=== PATIENT | female | born 1950 | race Caucasian/White ===

== ENCOUNTER → 2016-02-27 | Outpatient (CLI) | payer OTHER ==
[~2016-02-27] MED LIST: AMLO-114 PO; ASPI1CHW12; BIOTCAP2 PO; BYS/5 PO; HYDR1TAB2 PO; KETO10TA PO; LEVO125T4 PO; MULT-506 PO; OXYC-57 PO; POTA10CA28 PO; SIMV20TA2 PO; VENL150T33 PO; VENL75CA73 PO; ZOLP10TA6 PO; ZOLP5TAB PO
[2016-02-27 10:55] LABS: BASO % 0.4 %; BASO ABS # 0.03 K/uL (0-0.2); COMPLETE YES; EOS % 2.5 %; HEMATOCRIT 39.7 % (37-47); LYMPH ABS # 2.26 K/uL (1.2-3.4); MEAN CELL VOLUME 92.3 fL (80-100); MEAN CORPUSCULAR HGB CONC 32.5 g/dl (32-36); MEAN PLATELET VOLUME 11.6 fL (7.4-10.4); MONO % 6.9 %; NEUT % 59.2 %; PLATELET COUNT 192 K/uL (130-400); WHITE BLOOD COUNT 7.29 K/uL (4.8-10.8)
[2016-02-27 11:33] LABS: BLOOD UREA NITROGEN 21 mg/dl (7-18); BUN/CREATININE RATIO 28.9 (10-20); CALCIUM 8.9 mg/dl (8.5-10.1); CARBON DIOXIDE 27 mmol/L (21-32); CHLORIDE 106 mmol/L (98-107); CREATININE 0.72 mg/dl (0.60-1.20); GLUCOSE 102 mg/dl (70-99); POTASSIUM 4.2 mmol/L (3.5-5.1); SODIUM 141 mmol/L (136-145)
== END | disposition home or self-care (01) ==
LOC: C.CPL 10:05
PROVIDERS: ATTEND Orthopaedic Surgery
DX: Z01.812 Encounter for preprocedural laboratory examination (principal); Z01.810 Encounter for preprocedural cardiovascular examination; M25.511 Pain in right shoulder

== ENCOUNTER → 2016-03-08 | Day surgery (SDC) | payer OTHER ==
[2016-03-06 09:25] VITALS: Ht 158.8 cm; Wt 85.5 kg
[~2016-03-08] VITALS: Ht 158.8 cm; Wt 85.5 kg
[~2016-03-08] MED LIST changes: -AMLO-114 PO; +ATROPINE SULFATE 0.1 MG/ML 5ML SYR IV PRN; +BUPIVACAINE/EPINEPHRINE 0.25% 1:200,000 30 ML VIAL ONE; +CEFAZOLIN 2000 MG/60 ML D5W IV SCH; +DEXAMETHASONE SOD INJ 4 MG/ML VIAL IV PRN; +DEXAMETHASONE SOD INJ 4 MG/ML VIAL ONE; +EpHEDrine SULFATE 50MG/5ML SYR ONE; +EpHEDrine SULFATE INJ 50 MG/ML AMP IV PRN; +EpINEphrine INJ 1MG/ML AMP 1 MG/ML AMP ONE; +FENTANYL CITRATE INJ 50 MCG/1 ML 2 ML VIAL IV PRN; +FENTANYL CITRATE INJ 50 MCG/1 ML 2 ML VIAL ONE; -HYDR1TAB2 PO; +KETOROLAC TROMETHAMINE 30 MG/ML VIAL IV. PRN; +LABETALOL HCL IV 5 MG/ML 20ML IV PRN; +LACTATED RINGER'S 1000ML 1,000 ML IV SCH; +LIDOCAINE HCL 1% MPF 2 ML VIAL ONE; +LIDOCAINE HCL 2% 2 ML VIAL (20MG/ML) ONE; +METOCLOPRAMIDE HCL INJ 5 MG/ML 2 ML VIAL IV PRN; +MIDAZOLAM HCL 1 MG/ML 2ML VIAL ONE; +MoRPHine SULFATE 10 MG/ML CARP/VIAL IV PRN; +ONDANSETRON INJ 2 MG/ML 2 ML VIAL IV PRN; +ONDANSETRON INJ 2 MG/ML 2 ML VIAL ONE; +OXYCODONE/ACETAMINOPHEN 5-325 TAB PO PRN; +PHENYLEPHRINE 100MCG/ML 5ML SYR IV PRN; +PROPOFOL IV EMULSION 10 MG/ML 20 ML VIAL IV ONE; +ROPIVACAINE 0.5% 5 MG/ML 30 ML VIAL ONE; +SODIUM CHLORIDE 0.9% 1000ML 1,000 ML IV SCH; -ZOLP5TAB PO
--- NOTE | 2016-03-08 07:35 | History & Physical Bridge - [place] ---
H&P Re-Evaluation Bridge Note: I have examined the patient, reviewed the History & Physical and in the interval since the performance of the History & Physical I have noted the following changes of clinical significance: No changes noted
--- NOTE | 2016-03-08 11:04 | Discharge Instructions-SurgCtr ---
Discharge Instructions Visit Reason for Visit: Right Shoulder Rotator Cuff Syndrome, Pain Discharge Discharge Diagnosis / Problem: SAME ABOVE Discharge Goals Goal(s): Decrease discomfort, Improve disease control Activity Recommendations Activity Limitations: resume your previous activity Lifting Limitations: until after follow-up appointment Exercise/Sports Limitations: until after follow-up appointment Driving or Machine Use: resume 1 day after discharge Anesthesia . Post Anesthesia Instructions: If you have had General Anesthesia or IV Sedation: * Do not drive today. * Resume driving when surgeon permits. * Do not make important decisions or sign legal documents today. * Call surgeon for: 1. Temperature elevations greater than 101 degrees F. 2. Uncontrollable pain. 3. Excessive bleeding. 4. Persistent nausea and vomiting. 5. Medication intolerance (nausea, vomiting or rash). * For nausea and vomiting use only clear liquids such as: tea, soda, bouillon until nausea subsides, then gradually increase diet as tolerated. * If you have any concerns or questions, call your surgeon's office. If physician is unavailable and it is an emergency, call 911 or go to the nearest emergency room. . Instructions / Follow-Up Instructions / Follow-Up MEDICATIONS: * Resume previous medications unless instructed otherwise by your surgeon. * Always take pain medication on a full stomach or with food to avoid upset stomach. * Do not drink alcohol or drive while taking narcotics. * Ibuprofen or Tylenol may be taken if narcotic not needed. SPECIAL CARE INSTRUCTIONS: __ None _X_ Keep extremity elevated and iced x 48 hours; apply ice 20-30 minutes 8-10 times/day. May remove at night. _X_ Sling (WEAR NEEDED FOR COMFORT) __24 hrs/day __ Remove at night __ Shoulder Immobilizer __ 24 hrs/day __ Remove at night _X_ Dressing __ Maintain until seen in office, may shower with plastic over site _X_ Remove dressings in 24-48 hours and then may shower _X_ Cover incisions with band-aids after showering __ Do not remove steri-strips Call physician if chills or temperature rises above 102 degrees or pain unrelieved by prescribed pain medications at . . Diet Recommendations Home Diet: no limitations Fluid Restriction: None Procedures Procedures Performed: Right Shoulder Arthroscopy, Subacromial Decompression, Distal Clavicle Excsion Biceps Tenotomy Pending Studies Studies pending at discharge: no Medical Emergencies . Who to Call and When: Medical Emergencies: If at any time you feel your situation is an emergency, please call 911 immediately. . Non-Emergent Contact Non-Emergency issues call your: Primary Care Provider Call Non-Emergent contact if: you have a fever, temperature is above 101.5 . . "Provider Documentation" section prepared by Porter Silver.
--- NOTE | 2016-03-08 11:08 | [facility] Post Operative Brief Note ---
Immediate Operative Summary Operative Date Mar 08, 2016. Pre-Operative Diagnosis Right Shoulder Rotator Cuff Syndrome, Pain Post-Operative Diagnosis Same Procedure(s) Performed Right Shoulder Arthroscopy, Subacromial Decompression, Distal Clavicle Excsion Biceps Tenotomy Surgeon Dr. Vanna Madrigal Contract Administrator Surgeon(s) Orlando Silver PA-C Findings as above Specimens None Complication(s) None Disposition Recovery Room / PACU
--- NOTE | 2016-03-08 11:10 | OPERATIVE REPORT ---
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 POSTOPERATIVE DIAGNOSIS: Severe external impingement, acromioclavicular joint arthritis, and moderate to severe arthritis of the glenohumeral joint. PROCEDURE: Right shoulder diagnostic arthroscopy with extensive debridement including removal several small cartilaginous loose bodies, and chondroplasty of the glenohumeral joint with acromioplasty, biceps tenotomy and distal clavicle resection. SURGEON: Dr. Mega Madrigal. FISHERIES ENFORCEMENT OFFICER: Brandon Silver PA-C, whose assistance was necessary for positioning the arm and helping with instrumentation. ANESTHESIA: General with a right interscalene nerve block. COMPLICATIONS: None. CONDITION: Stable to PACU. INDICATIONS: Barbie is a pleasant 65-year-old female who presented to my office with chronic right shoulder pain. X-rays, MRI and clinical examination were diagnostic mostly for severe external impingement. I did not appreciate a lot of arthritis on the initial MRI. After failing extensive conservative treatment, she elected to undergo arthroscopy. On 03/08/2016, she arrived at [facility] for the above procedure. She was seen in the preoperative holding area and the operative extremity was identified and signed. She was given a preoperative antibiotic and a right interscalene nerve block. She was taken back to the operating room, laid on the table in a supine position and put under general anesthesia. She was then put into the beachchair position. The right shoulder was prepped and draped in a sterile fashion. A time-out was done and the patient and operative extremity was properly identified. On preoperative physical examination, she was a little bit tight, but no signs of adhesive capsulitis. A scope was placed in the posterior portal. Diagnostic arthroscopy showed significant grade 3 and grade 4 chondral changes throughout the humeral head and the glenoid. There was a small inferior humeral osteophyte. There were multiple small cartilaginous loose bodies. An anterior portal was made. A shaver was used to do an extensive debridement of the intraarticular space. A chondroplasty was done throughout the humeral head and the glenoid. The frayed degenerative labrum was cleaned up and small loose bodies were removed. There was a large degenerative labral SLAP tear, so the biceps tendon was arthroscopically tenotomized. The supraspinatus, infraspinatus, teres minor and subscapularis were all checked and intact. The scope was then put into the subacromial space. A lateral portal was made. A shaver was used to do a complete subacromial and subdeltoid bursectomy. An ablator was used to tease the coracoacromial ligament off the undersurface of the acromion and a 5-0 jose was used to complete an acromioplasty of a Bigliani type 3 acromion. A shaver was used to remove any excess debris and the bursal side of the rotator cuff was examined extensively without evidence of tear. There was some arthritis of the AC joint, so through an anterior portal a 5-0 jose was used to resect the distal 5 mm of the clavicle. Complete resection was checked under direct visualization. A shaver was used to remove any excess debris. Final diagnostic arthroscopy showed no additional pathology. Arthroscopic instruments were removed from the shoulder. Portal sites were closed with 3-0 nylon. She was then placed in a soft dressing and regular arm sling. She was then extubated, transferred to a litter and taken to the postanesthesia care unit in stable condition. She tolerated the procedure well. I attest to the content of the Intraoperative Record and any orders documented therein. Any exceptio ns are noted below.
[2016-03-08 11:55] VITALS: TEMP 36.6
--- NOTE | 2016-03-08 12:16 | Anesthesia Progress Nt - [facility] ---
Anesthesia Post Op Note Date & Time Mar 08, 2016 at 12:15 Vital Signs Pain Intensity: 0 Vital Signs Past 12 Hours Date Time Temp Pulse Resp B/P Pulse Ox O2 Delivery O2 Flow Rate FiO2 03/08/16 11:43 128/70 03/08/16 11:40 83 18 03/08/16 11:40 83 18 96 03/08/16 11:39 84 18 96 03/08/16 11:39 85 18 03/08/16 11:38 130/65 03/08/16 11:37 36.6 85 16 126/61 97 Room Air 03/08/16 11:34 85 25 126/61 98 03/08/16 11:34 84 25 03/08/16 11:29 84 19 129/60 100 03/08/16 11:29 84 19 03/08/16 11:24 80 19 03/08/16 11:24 84 19 100 03/08/16 11:23 128/71 03/08/16 11:22 83 19 03/08/16 11:22 86 19 100 03/08/16 11:19 136/60 03/08/16 11:17 83 18 03/08/16 11:17 84 18 100 03/08/16 11:16 84 22 100 03/08/16 11:16 83 22 03/08/16 11:13 136/72 03/08/16 11:11 81 23 03/08/16 11:11 88 23 100 03/08/16 11:08 139/65 03/08/16 11:06 84 18 100 03/08/16 11:06 84 18 03/08/16 11:06 36.4 88 12 147/74 98 Diffusion Mask 6 03/08/16 11:04 147/74 03/08/16 10:11 0 03/08/16 10:11 0 03/08/16 10:06 71 15 03/08/16 10:06 71 15 100 03/08/16 10:05 73 15 03/08/16 10:05 72 15 100 03/08/16 10:03 119/66 03/08/16 10:00 78 24 03/08/16 10:00 78 24 100 03/08/16 09:59 77 17 03/08/16 09:59 77 17 125/70 100 03/08/16 09:54 77 16 99 03/08/16 09:54 78 16 03/08/16 09:53 123/62 03/08/16 09:49 74 17 03/08/16 09:49 74 17 100 03/08/16 09:48 122/56 03/08/16 09:44 72 16 03/08/16 09:44 72 16 100 03/08/16 09:43 116/60 03/08/16 09:39 72 13 03/08/16 09:39 72 13 100 03/08/16 09:38 113/63 03/08/16 09:36 70 16 03/08/16 09:36 70 16 100 03/08/16 09:33 121/59 03/08/16 09:31 67 16 03/08/16 09:31 67 16 100 03/08/16 09:30 68 20 100 03/08/16 09:30 68 20 03/08/16 09:29 122/67 03/08/16 09:25 72 18 100 03/08/16 09:25 72 18 03/08/16 09:23 125/67 03/08/16 09:20 73 17 100 03/08/16 09:20 74 17 03/08/16 09:18 152/79 03/08/16 09:15 69 03/08/16 07:49 36.8 68 16 149/66 96 Room Air Notes Mental Status: alert / awake / arousable, participated in evaluation Pt Amnestic to Procedure: Yes Nausea / Vomiting: adequately controlled Pain: adequately controlled Airway Patency, RR, SpO2: stable & adequate BP & HR: stable & adequate Hydration State: stable & adequate Anesthetic Complications: no major complications apparent
[2016-03-08 12:30] VITALS: BP 136/80; PULSE 80; O2SAT 96
== END | disposition home or self-care (01) ==
LOC: X.SURG 07:14
PROVIDERS: ATTEND Orthopaedic Surgery
DX: M75.41 Impingement syndrome of right shoulder (principal); M19.011 Primary osteoarthritis, right shoulder; E78.00 Pure hypercholesterolemia, unspecified

== ENCOUNTER 2017-02-01 09:39 | Observation (INO) | payer OTHER ==
[~2017-02-01] VITALS: Ht 157.5 cm; Wt 93.4 kg
[~2017-02-01 09:39] MED LIST changes: -ATROPINE SULFATE 0.1 MG/ML 5ML SYR IV PRN; -BUPIVACAINE/EPINEPHRINE 0.25% 1:200,000 30 ML VIAL ONE; -CEFAZOLIN 2000 MG/60 ML D5W IV SCH; -DEXAMETHASONE SOD INJ 4 MG/ML VIAL IV PRN; -DEXAMETHASONE SOD INJ 4 MG/ML VIAL ONE; -EpHEDrine SULFATE 50MG/5ML SYR ONE; -EpHEDrine SULFATE INJ 50 MG/ML AMP IV PRN; -EpINEphrine INJ 1MG/ML AMP 1 MG/ML AMP ONE; -FENTANYL CITRATE INJ 50 MCG/1 ML 2 ML VIAL IV PRN; -FENTANYL CITRATE INJ 50 MCG/1 ML 2 ML VIAL ONE; -KETO10TA PO; -KETOROLAC TROMETHAMINE 30 MG/ML VIAL IV. PRN; -LABETALOL HCL IV 5 MG/ML 20ML IV PRN; -LACTATED RINGER'S 1000ML 1,000 ML IV SCH; -LEVO125T4 PO; +LEVO125T5 PO; -LIDOCAINE HCL 1% MPF 2 ML VIAL ONE; -LIDOCAINE HCL 2% 2 ML VIAL (20MG/ML) ONE; -METOCLOPRAMIDE HCL INJ 5 MG/ML 2 ML VIAL IV PRN; -MIDAZOLAM HCL 1 MG/ML 2ML VIAL ONE; -MoRPHine SULFATE 10 MG/ML CARP/VIAL IV PRN; -ONDANSETRON INJ 2 MG/ML 2 ML VIAL IV PRN; -ONDANSETRON INJ 2 MG/ML 2 ML VIAL ONE; -OXYC-57 PO; -OXYCODONE/ACETAMINOPHEN 5-325 TAB PO PRN; -PHENYLEPHRINE 100MCG/ML 5ML SYR IV PRN; -PROPOFOL IV EMULSION 10 MG/ML 20 ML VIAL IV ONE; -ROPIVACAINE 0.5% 5 MG/ML 30 ML VIAL ONE; -SODIUM CHLORIDE 0.9% 1000ML 1,000 ML IV SCH
[2017-02-01] MEDS ORDERED: ASPIRIN 324 MG CHEW PO STA (09:54)
[2017-02-01 10:16] LABS: POINT OF CARE TROPONIN I < 0.030 ng/ml (0-0.045)
[2017-02-01 10:17] LABS: PROTHROMBIN TIME (PATIENT) 10.1 SECONDS (9.0-12.0)
[2017-02-01 10:25] LABS: BLOOD UREA NITROGEN 15 mg/dl (7-18); BUN/CREATININE RATIO 20.1 (10-20); CALCIUM 8.5 mg/dl (8.5-10.1); CARBON DIOXIDE 27 mmol/L (21-32); CHLORIDE 108 mmol/L (98-107); CREATININE 0.72 mg/dl (0.60-1.20); GLUCOSE 97 mg/dl (70-99); SODIUM 138 mmol/L (136-145)
[2017-02-01 10:26] LABS: BASO % 0.6 %; BASO ABS # 0.04 K/uL (0-0.2); COMPLETE YES; EOS % 2.6 %; HEMATOCRIT 41.2 % (37-47); IG% 0.3 %; LYMPH % 34.5 %; LYMPH ABS # 2.43 K/uL (1.2-3.4); MEAN CELL VOLUME 92.4 fL (80-100); MEAN CORPUSCULAR HEMOGLOBIN 30.3 pg (25-34); MEAN CORPUSCULAR HGB CONC 32.8 g/dl (32-36); MEAN PLATELET VOLUME 10.9 fL (7.4-10.4); MONO % 7.9 %; NEUT % 54.1 %; PLATELET COUNT 223 K/uL (130-400); RED BLOOD COUNT 4.46 M/uL (4.2-5.4); WHITE BLOOD COUNT 7.05 K/uL (4.8-10.8)
--- NOTE | 2017-02-01 10:35 | DIAGNOSTIC IMAGING REPORT ---
CHEST ONE VIEW PORTABLE CLINICAL HISTORY: cp dyspnea COMPARISON STUDY: 06/24/2012 FINDINGS: The bones soft tissues and hemidiaphragms are normal. The cardiomediastinal silhouette is normal. The lungs are clear. The pulmonary vasculature is normal. IMPRESSION: Negative chest. The above report was generated using voice recognition software. It may contain grammatical, syntax or spelling errors. Electronically signed by: Lai Hooper M.D. 02/01/2017 10:33 AM Dictated Date/Time: 02/01/2017 10:32 AM
[2017-02-01] MEDS ORDERED: OPTIRAY 320 IV PRN (10:45)
--- NOTE | 2017-02-01 10:58 | DIAGNOSTIC IMAGING REPORT ---
(CHEST FOR PE) ANGIO WITH CT DOSE: 317.43 mGy.cm HISTORY: Chest pain dyspnea TECHNIQUE: Multiaxial CT images of the chest were performed following the intravenous administration of contrast to evaluate the pulmonary arteries. Maximal intensity projection images were also obtained. A dose lowering technique was utilized adhering to the principles of ALARA. COMPARISON STUDY: None. FINDINGS: There is a normal caliber thoracic aorta with no evidence for dissection. There is no evidence for pulmonary embolus. No pleural effusions. No pneumothorax. The liver and spleen are unremarkable. No mediastinal or hilar lymphadenopathy. The central airways are patent. The lungs are clear. IMPRESSION: No evidence for pulmonary embolus. The lungs are clear. The above report was generated using voice recognition software. It may contain grammatical, syntax or spelling errors. Electronically signed by: Lai Hooper M.D. 02/01/2017 10:57 AM Dictated Date/Time: 02/01/2017 10:53 AM
--- NOTE | 2017-02-01 11:58 | DIAGNOSTIC IMAGING REPORT ---
ULTRASOUND L VENOUS DOPP LOWER EXT UNILAT CLINICAL HISTORY: Left leg pain COMPARISON STUDY: No previous studies for comparison. FINDINGS: Real-time and color flow Doppler imaging were performed. Flow was seen within the femoral, popliteal and calf veins with no intraluminal thrombus demonstrated. The saphenous vein is patent. IMPRESSION: No evidence of left lower extremity DVT. Electronically signed by: Vasyl Jansen M.D. 02/01/2017 11:56 AM Dictated Date/Time: 02/01/2017 11:56 AM
[2017-02-01] MEDS ORDERED: MAGNESIUM HYDROXIDE SUSP 30 ML UDC PO PRN (12:00)
[2017-02-01] MEDS ORDERED: ALUMINUM/MAGNESIUM/SIMETH (MAALOX MAX) 30 ML UDC PO PRN (12:00)
[2017-02-01] MEDS ORDERED: ACETAMINOPHEN 325 MG TAB PO PRN (12:00)
[2017-02-01] MEDS ORDERED: ZOLPIDEM TARTRATE 5 MG TAB PO PRN (12:00)
[2017-02-01] MEDS ORDERED: POLYETHYLENE (MIRALAX) 17 GM PACK PO PRN (12:00)
[2017-02-01] MEDS ORDERED: ONDANSETRON INJ 2 MG/ML 2 ML VIAL IV PRN (12:00)
[2017-02-01 12:25] VITALS: BP 130/75; PULSE 67; TEMP 36.4; O2SAT 99; Ht 157.5 cm; Wt 93.4 kg
--- NOTE | 2017-02-01 12:56 | Progress Note ---
Progress Note Date of Service Feb 01, 2017. Progress Note ATTENDING NOTE : pt seen and examined, in agreement with H&P by Candace Elmore PA-C lab and images reviewed 66 YO F with medical hx of HTN , hyperlipidemia , depression is scheduled to have left knee arthroplasty by Dr Yu on 03/20/17 pt was at [facility] for pre op eval , reports of SOB with exertion , stress episodes of left jaw pain and left arm numbness pt was sent to ER for eval no symptom to chest heaviness or chest pain at present mentions of having chest heaviness with going up on stairs and anxiety stress , gets SOB gained wit recently -attributing her symptoms to that as well no dizzy spell , diaphoresis , nausea , jaw discomfort or left arm pain with chest discomfort gets left jaw pain /discomfort like [place] -but does not happen same time with chest heaviness left arm numbness left arm numbness on and off , has left sided rotator cuff injury does not occur with chest pain P/E: GEN elderly female , well appearing , no sign of distress HEENT sclera non icteric , PERRLA /EOMI LUNGS : clear to auscultate ,no wheeze or rales HT : regular S1/S2 ABDOMEN: soft, non tender EXT no lower ext edema, tenderness and decrease ROM on left lower ext NEURO: AAO x3. no focal deficit A/P Chest pain : atypical for angina , intermittent for 3 weeks , no other associated symptom left jaw pain and left arm numbness appears to be separate issues possible TMJ on left /cervical radiculopathy has decrease endurance for left knee DJD cardiac marker X1 set negative EKG NSR Cxray no effusion or infiltration CTA of chest ordered for elevated D Dimer -negative for PE or any other lung pathology given pt's age and cardiac risk factors ;HTN /hyperlipidemia ACS need to be ruled out tele monitor serial cardiac markers resting ECHO , cardiology eval , will defer to cardiology regarding stress test recommendation will need Pharmacological stress test ( for DJD of knee ) pt is continued with statin , Bystolic added Aspirin 81 mg daily please refer to further discussion of other chronic issues in the documentation by Candace Lawrence MD
--- NOTE | 2017-02-01 13:04 | History and Physical ---
History & Physical Date & Time of Service: Feb 01, 2017 at 12:29 Chief Complaint: Chest Pain Primary Care Physician: Virgen Hutson M.D. History of Present Illness Source: patient Pt is 66 y/o M with PMH HTN, hyperlipidemia, anxiety/depression, non-toxic multinodular goiter s/p thyroidectomy who presented to ER from out pt pre-op testing with c/o CP. Pt states past 3 weeks with intermittent chest heaviness with associated SOB. This occurs with climbing stairs and when feeling anxious. Reports when sits down and rests that the chest heaviness and SOB resolves. Had CP this morning when she was feeling anxious which resolved after a couple of minutes. No current CP Denies any associated diaphoresis, N/V. Pt admits to a lot of stress in her life with taking care of her who had a stroke a couple of weeks ago and stress with a daughter involved in illicit drugs. Does c /o intermittent sweats at times over past couple of years. C/O left jaw spasm and sometimes pain that is not associated with CP/SOB. She is following with ENT currently and pt reports suspect eustachian tube problem. Also c/o some intermittent tingling sensation left arm radiates to L fingers that is not associated with CP/SOB. Reports hx some Left arm pain approx 15 years ago that she was referred to cardiology in [place] and pt reports negative ECHO at that time and was found to have L rotator cuff tear. Pt reports intermittent "wooziness" when walking and had MRI showing arachnoid cyst and followed with neurosurgery and reports non-surgical. She reports gaining approx 20 pounds over the past year which she relates is less active with her L knee pain and stressed and eating more. She is scheduled for L knee replacement Mar 20, 2017. Denies fever/chills, N/V/D/C, RDZ, dizziness, syncope, vision changes, neck pain , orthopnea, palpitations, cough, sore throat, choking, otalgia, rhinorrhea, abdominal pain, extremity weakness, extremity edema, rashes, urinary symptoms. In ER vitals stable. Had negative initial troponin, negative CT chest for PE. EKG NSR rate 81, no ST elevations. Past Medical/Surgical History Medical Problems: (1) Anxiety Status: Chronic (2) Arachnoid cyst Status: Chronic (3) Depression Status: Chronic (4) HTN (hypertension) Status: Chronic (5) Hyperlipemia Status: Chronic (6) Hypothyroidism Status: Chronic (7) Non-toxic multinodular goiter Status: Chronic Surgical Problems: (1) H/O repair of left rotator cuff Status: Resolved (2) H/O thyroidectomy Status: Resolved (3) Hx of cholecystectomy Status: Resolved (4) Hx of tonsillectomy Status: Resolved (5) Hx of total knee arthroplasty Status: Resolved Family History Diabetes mellitus FATHER FH: cancer MOTHER (lung [place]) BROTHER (lung, kidney, colon [place]) Social History Smoking Status: Never Smoker Smokeless Tobacco Use: No Alcohol Use: none Drug Use: none Marital Status: Housing status: lives with significant other Multi-Drug Resistant Organisms History of MDRO: No Allergies Coded Allergies: No Known Allergies (Unverified , 02/01/17) Home Medications Scheduled Biotin (Biotin 5000), 1 TAB PO HS Levothyroxine Sodium (Levothyroxine Sodium), 125 MCG PO QAM Nebivolol Hcl (Bystolic), 10 MG PO HS Potassium Chloride (Micro-K Ext Rel), 10 MEQ PO HS Simvastatin (Zocor), 20 MG PO HS Venlafaxine Hcl (Venlafaxine Extended Rel), 75 MG PO HS Venlafaxine Hcl (Venlafaxine Hcl Er), 150 MG PO QAM Zolpidem Tartrate (Zolpidem Tartrate), 10 MG PO HS Review of Systems Constitutional: + problem reported (see HPI) ENT: No hearing loss, No unusual epistaxis, No nasal symptoms, No sore throat, No tinnitus, No trouble swallowing Respiratory: No cough, No sputum, No wheezing, No dyspnea at rest, No hemoptysis Cardiovascular: + problem reported (+CP see HPI), No edema, No claudication, No palpitations Abdomen: No pain, No nausea, No vomiting, No diarrhea, No constipation, No GI bleeding Musculoskeletal: + joint pain (L knee pain - chronic, denies worsening), No muscle pain, No swelling, No calf pain Genitourinary - Female: No dysuria, No urinary frequency, No urinary urgency, No urinary incontinence, No urinary retention, No hematuria Neurologic: No memory loss, No paralysis, No weakness Endocrine: No excessive thirst, No excessive urination Hematologic / Lymphatic: No abnormal bleeding/bruising, No clotting problems Integumentary: No rash, No itch Physical Exam Vital Signs Date Time Temp Pulse Resp B/P (MAP) Pulse Ox O2 Delivery O2 Flow Rate FiO2 02/01/17 12:23 80 18 140/68 99 Room Air 02/01/17 10:54 79 18 143/75 98 Room Air 02/01/17 10:00 97 Room Air 02/01/17 10:00 83 02/01/17 09:40 36.4 82 20 136/80 97 Room Air General Appearance: WD/WN, no apparent distress Head: normocephalic, atraumatic Eyes: normal inspection, PERRL, EOMI, sclerae normal ENT: normal ENT inspection, pharynx normal, + pertinent finding (mucous membranes moist. no clicking on TMJ with opening/closing jaw) Neck: supple, no JVD, no carotid bruits, trachea midline Respiratory/Chest: chest non-tender, lungs clear, normal breath sounds, no respiratory distress, no accessory muscle use Cardiovascular: regular rate, rhythm, no murmur, normal peripheral pulses Abdomen/GI: normal bowel sounds, non tender, soft Extremities/Musculoskelatal: no calf tenderness, normal capillary refill, no pedal edema, + pertinent finding (L knee with edema, no erythema or ecchymosis. +tenderness anterior knee, limited flexion of L knee. remaining extremities non- tender, ROM intact, distal pulses intact, brisk capillary refill, sensation to light touch intact) Neurologic/Psych: alert, normal mood/affect, oriented x 3 Skin: normal color, warm/dry, no rash Diagnostics Laboratory Results Results Past 24 Hours Test 02/01/17 09:50 02/01/17 09:56 02/01/17 11:51 Range/Units White Blood Count 7.05 4.8-10.8 K/uL Red Blood Count 4.46 4.2-5.4 M/uL Hemoglobin 13.5 12.0-16.0 g/dL Hematocrit 41.2 37-47 % Mean Corpuscular Volume 92.4 80-100 fL Mean Corpuscular Hemoglobin 30.3 25-34 pg Mean Corpuscular Hemoglobin Concent 32.8 32-36 g/dl Platelet Count 223 130-400 K/uL Mean Platelet Volume 10.9 7.4-10.4 fL Neutrophils (%) (Auto) 54.1 % Lymphocytes (%) (Auto) 34.5 % Monocytes (%) (Auto) 7.9 % Eosinophils (%) (Auto) 2.6 % Basophils (%) (Auto) 0.6 % Neutrophils # (Auto) 3.82 1.4-6.5 K/uL Lymphocytes # (Auto) 2.43 1.2-3.4 K/uL Monocytes # (Auto) 0.56 0.11-0.59 K/uL Eosinophils # (Auto) 0.18 0-0.5 K/uL Basophils # (Auto) 0.04 0-0.2 K/uL RDW Standard Deviation 47.0 36.4-46.3 fL RDW Coefficient of Variation 14.0 11.5-14.5 % Immature Granulocyte % (Auto) 0.3 % Immature Granulocyte # (Auto) 0.02 0.00-0.02 K/uL Prothrombin Time 10.1 9.0-12.0 SECONDS Prothromb Time International Ratio 1.0 0.9-1.1 Activated Partial Thromboplast Time 26.9 21.0-31.0 SECONDS Partial Thromboplastin Ratio 1.0 Sodium Level 138 136-145 mmol/L Potassium Level 4.0 3.5-5.1 mmol/L Chloride Level 108 98-107 mmol/L Carbon Dioxide Level 27 21-32 mmol/L Anion Gap 3.0 3-11 mmol/L Blood Urea Nitrogen 15 7-18 mg/dl Creatinine 0.72 0.60-1.20 mg/dl Estimated GFR () 99.7 Estimated GFR (Non- 86.1 BUN/Creatinine Ratio 20.1 10-20 Random Glucose 97 70-99 mg/dl Calcium Level 8.5 8.5-10.1 mg/dl Pro-B-Type Natriuretic Peptide 36 0-900 pg/ml Bedside D-Dimer > 450 0-450 ng/mlFEU Bedside Troponin I < 0.030 0-0.045 ng/ml Diagnostic Radiology CXR: IMPRESSION: Negative chest. CTA CHEST: IMPRESSION: No evidence for pulmonary embolus. The lungs are clear. U/S LE: IMPRESSION: No evidence of left lower extremity DVT. EKG EKG: NSR, rate 81, T wave inversion III, V1 Impression Assessment and Plan CHEST PAIN R/O ACS. Risk factors: HTN, hyperlipidemia Pt with intermittent chest heaviness with exertion or when feeling anxious with associated SOB. Had CP this morning which resolved after a couple of minutes. No current CP. No Suspect CP may be secondary to some anxiety also. Was given ASA 324mg in ER. Initial troponin negative. negative CXR and CT angio chest. EKG : NSR rate 81, no ST elevations noted. -Monitor Vitals - Repeat EKG in am - Will trend cardiac enzymes - ECHO -lipid panel in am, continue statin -ASA -continue beta chon - Bystolic -Nitro prn CP and repeat EKG for CP -Cardiology consult HTN Stable currently. Continue to monitor -continue bystolic HYPERLIPIDEMIA -lipid panel in am -continue zocor ANXIETY/DEPRESSION Pt with hx depression, anxiety feels better controlled on Effexor -continue effexor -continue ambien HS prn insomnia HYPOTHYROIDISM/ HX MULTINODULAR GOITER S/P THYROIDECTOMY -TSH in am -continue levothyroxine DVT PROPHYLAXIS -heparin SQ DISPOSITION -admit tele obs -Full Code as per discussion with pt -Follows with Dr Hutson for routine care Pt was seen with Dr Lawrence. See addendum ATTENDING NOTE : pt seen and examined, in agreement with H&P by Candace Elmore PA-C lab and images reviewed 66 YO F with medical hx of HTN , hyperlipidemia , depression is scheduled to have left knee arthroplasty by Dr Yu on 03/20/17 pt was at [facility] for pre op eval , reports of SOB with exertion , stress episodes of left jaw pain and left arm numbness pt was sent to ER for eval no symptom to chest heaviness or chest pain at present mentions of having chest heaviness with going up on stairs and anxiety stress , gets SOB gained wit recently -attributing her symptoms to that as well no dizzy spell , diaphoresis , nausea , jaw discomfort or left arm pain with chest discomfort gets left jaw pain /discomfort like [place] -but does not happen same time with chest heaviness left arm numbness left arm numbness on and off , has left sided rotator cuff injury does not occur with chest pain P/E: GEN elderly female , well appearing , no sign of distress HEENT sclera non icteric , PERRLA /EOMI LUNGS : clear to auscultate ,no wheeze or rales HT : regular S1/S2 ABDOMEN: soft, non tender EXT no lower ext edema, tenderness and decrease ROM on left lower ext NEURO: AAO x3. no focal deficit A/P Chest pain : atypical for angina , intermittent for 3 weeks , no other associated symptom left jaw pain and left arm numbness appears to be separate issues possible TMJ on left /cervical radiculopathy has decrease endurance for left knee DJD cardiac marker X1 set negative EKG NSR Cxray no effusion or infiltration CTA of chest ordered for elevated D Dimer -negative for PE or any other lung pathology given pt's age and cardiac risk factors ;HTN /hyperlipidemia ACS need to be ruled out tele monitor serial cardiac markers resting ECHO , cardiology eval , will defer to cardiology regarding stress test recommendation will need Pharmacological stress test ( for DJD of knee ) pt is continued with statin , Bystolic added Aspirin 81 mg daily please refer to further discussion of other chronic issues in the documentation by Candace Lawrence MD Level of Care Telemetry Resuscitation Status FULL RESUSCITATION VTE Prophylaxis VTE Risk Assessment Done? Y/N: Yes Risk Level: Moderate Given or contraindicated: Unfractionated heparin SQ Additional Copies To Virgen Hutson M.D.
[2017-02-01] MEDS ORDERED: IV FLUIDS COMPLETED PRN (13:30)
[2017-02-01] MEDS: HEPARIN SOD 5000 UNIT/0.5 ML CARP SQ SCH ×2 (13:52→21:47)
--- NOTE | 2017-02-01 15:07 | CARDIOLOGY CONSULTATION ---
DATE OF CONSULTATION: 02/01/2017 DATE OF CONSULTATION: 02/01/2017 REFERRING PHYSICIAN: Dr. Lawrence. REASON FOR CONSULTATION: Chest pain. CHIEF COMPLAINT ON ADMISSION: Chest heaviness. HISTORY OF PRESENT ILLNESS: Ms. Solomon is a 66-year-old female with a history of hypertension, dyslipidemia, depression and anxiety who presented for outpatient preoperative testing regarding left knee arthroplasty by Dr. Yu. The patient reported chest heaviness and shortness of breath with exertion. She also expressed concern regarding episodes of left-sided jaw pain and left arm numbness. She was subsequently sent to the Emergency Room. Her initial cardiac enzymes and ECG are unremarkable. The patient describes chest heaviness, particularly during stressful situations and associated with anxiety. She reports dyspnea on exertion as well as some associated chest tightness when she attempts to hurry. Left-sided jaw discomfort does not appear to be related to her exertion or chest discomfort. Left arm numbness also is somewhat sporadic. At night she sleeps with 2 pillows. Denies any orthopnea or PND. Denies palpitations, lightheadedness, dizziness, syncope or near syncope. Denies personal history of coronary disease, congestive heart failure, dysrhythmia, or rheumatic fever as a child. She is currently resting comfortably. Family present at bedside. She offers no complaints at this time. REVIEW OF SYSTEMS: The pertinent positive noted above, a comprehensive 10-system review is otherwise negative. PAST MEDICAL HISTORY: 1. Hypertension. 2. Dyslipidemia. 3. Hypothyroidism. 4. Depression. 5. Anxiety disorder. 6. Nontoxic multinodular goiter. PAST SURGICAL HISTORY: 1. Rotator cuff repair. 2. Thyroidectomy. 3. Cholecystectomy. 4. Tonsillectomy. 5. Total knee arthroplasty. FAMILY HISTORY: Father with history of diabetes, mother with lung cancer. No premature CAD or sudden cardiac . SOCIAL HISTORY: Lifelong nonsmoker. She has significant secondhand smoke exposure. She lives with her . ALLERGIES: No known drug allergies. CURRENT OUTPATIENT MEDICATIONS: 1. Synthroid 125 mcg daily. 2. Bystolic 10 mg daily. 3. KCl 10 mEq at bedtime. 4. Zocor 20 mg at bedtime. 5. Venlafaxine 75 mg in the evening, 150 mg in the morning. 6. Ambien 10 mg at bedtime. ECG ON ADMISSION: Normal sinus rhythm with sinus arrhythmia. D-dimer elevated. CTA of the chest performed. No evidence for pulmonary embolus, clear lung alaniz. LABORATORY DATA: Sodium 138, potassium 4.0, chloride 108, CO2 is 27, BUN is 15, creatinine is 0.72. The point of care troponin less than 0.030. ProBNP is 36. White blood cell count 7.05, hemoglobin is 13.5, platelet count is 223. Telemetry demonstrates sinus rhythm. PHYSICAL EXAMINATION: VITAL SIGNS: Temperature is 36.4 degrees centigrade, pulse 80 beats per minute and regular, respiratory rate is 18 breaths per minute, blood pressure 140/60, SAO2 is 98% on room air. GENERAL: NAD, obese, awake, alert and oriented x3. HEAD, EYES, EARS, NOSE, AND THROAT: Mucous membranes are moist. No scleral icterus. Conjunctivae pink. NECK: Supple, no JVD. No HJR. No carotid bruit. HEART: Regular with a normal S1 and S2. There is no murmur, rub, or gallop. LUNGS: Clear without rales, rhonchi or wheeze. ABDOMEN: Soft, nontender. There is no rebound or guarding. Normal bowel sounds. EXTREMITIES: Warm and dry. There is no clubbing, cyanosis, or edema. NEUROLOGIC EXAMINATION: Demonstrates no focal deficit. FINAL IMPRESSION: 1. A 66-year-old female presents with intermittent dyspnea on exertion, chest heaviness as well as atypical chest discomfort occurring at rest with some associated left arm and jaw discomfort. 2. Hypertension -- controlled. 3. Dyslipidemia -- tolerating atorvastatin. 4. Anxiety disorder. 5. Obesity. 6. Hypothyroidism. PLAN AND RECOMMENDATIONS: I had a long discussion with the patient and her family regarding arm and chest discomfort with atypical features; however, the exertional component is somewhat concerning for angina. The patient is unable to ambulate on treadmill due to knee discomfort requiring knee replacement in the near future. Cardiac enzymes will be trended x3 sets. There is no significant elevation the patient will be referred for a dobutamine stress echocardiography. She will continue current cardiovascular meds as noted above. Telemetry monitoring continue during hospitalization. Further recommendations pending clinical course and review of testing. Thank you for allowing me to participate in the care of your patient.
--- NOTE | 2017-02-01 16:10 | ECHOCARDIOGRAM REPORT ---
*NOTICE TO RECEIVING LIBERTARIAN AGENCY This information is strictly Confidential and protected under [place] law. [place] law prohibits you from making any further disclosure of this information unless further disclosure is expressly permitted by the written consent of the person to whom it pertains or is authorized by law. A general authorization for the release of medical or other information is not sufficient for this purpose. Hospital accepts no responsibility if the information is made available to any other person, INCLUDING THE PATIENT. Interpretation Summary * Name: VIJAY SNYDER Study Date: 02/01/2017 03:13 PM BP: 140/68 mmHg * Patient Location: [facility] HR: 80 * : 1950 (M/d/yyyy) Gender: Female Height: 62 in * Age: 66 yrs Ethnicity: [place] Weight: 210 lb * Ordering Physician: Leslie Lawrence * Performed By: Silvia Clement RDCS * * Reason For Study: CHEST PAIN * BSA: 2.0 m2 * The study was technically adequate. * -- Conclusions -- * Ejection Fraction = >70 %. * The basal septum is thickened and angulated consistent with sigmoid septum. * The left atrium is mildly dilated. * Grade I diastolic dysfunction, (abnormal relaxation pattern). * There is no pericardial effusion. * No significant valvular pathology. Procedure Details * A complete two-dimensional transthoracic echocardiogram was performed (2D, M-mode, Doppler and color flow Doppler). Left Ventricle * The left ventricle is normal in size. * There is borderline concentric left ventricular hypertrophy. * The basal septum is thickened and angulated consistent with sigmoid septum. * Ejection Fraction = >70 %. * The left ventricle is hyperdynamic. * The left ventricular wall motion is normal. Right Ventricle * The right ventricle is normal size. * The right ventricular systolic function is normal as assessed by tricuspid annular plane systolic excursion (TAPSE) (normal >1.5 cm). Atria * The left atrium is mildly dilated. * Right atrial size is normal. * There is no evidence of atrial septal defect, but resolution does not allow assessment for a patent foramen ovale. Mitral Valve * The mitral valve is normal. * There is no mitral valve stenosis. * Significant mitral regurgitation is absent. Tricuspid Valve * The tricuspid valve is normal. * There is no tricuspid stenosis. * Significant tricuspid regurgitation is absent. Aortic Valve * The aortic valve is trileaflet. * Aortic stenosis is absent. * There is no significant aortic regurgitation. Pulmonic Valve * The pulmonary valve is not well seen, but the Doppler examination is normal without significant regurgitation or stenosis. Great Vessels * The aortic root is normal size. Pericardium/Pleural * There is no pericardial effusion. Great Vessels * Normal inferior vena cava diameter and respiratory variation suggests normal central venous pressure. Left Ventricular Diastolic Function * Grade I diastolic dysfunction, (abnormal relaxation pattern). MMode 2D Measurements and Calculations IVSd 1.2 cm IVSs 1.8 cm LVIDd 4.2 cm LVIDs 2.1 cm LVPWd 1.2 cm LVPWs 2.0 cm IVS/LVPW 0.95 FS 50.1 % EDV(Teich) 77.2 ml ESV(Teich) 14.1 ml EF(Teich) 81.8 % EDV(cubed) 72.5 ml ESV(cubed) 9.0 ml EF(cubed) 87.6 % % IVS thick 59.0 % % LVPW thick 64.7 % LV mass(C)d 174.8 grams LV mass(C)dI 89.5 grams/m\S\2 LV mass(C)s 168.0 grams LV mass(C)sI 86.1 grams/m\S\2 SV(Teich) 63.1 ml SI(Teich) 32.4 ml/m\S\2 SV(cubed) 63.5 ml SI(cubed) 32.5 ml/m\S\2 ACS 1.4 cm LA dimension 4.2 cm asc Aorta Diam 3.0 cm LVOT diam 1.9 cm LVOT area 2.9 cm\S\2 LVAd ap4 28.6 cm\S\2 LVLd ap4 7.2 cm EDV(MOD-sp4) 92.6 ml EDV(sp4-el) 96.2 ml LVAs ap4 13.8 cm\S\2 LVLs ap4 5.2 cm ESV(MOD-sp4) 29.7 ml ESV(sp4-el) 31.2 ml EF(MOD-sp4) 68.0 % EF(sp4-el) 67.5 % LVAd ap2 28.5 cm\S\2 LVLd ap2 7.5 cm EDV(MOD-sp2) 90.8 ml EDV(sp2-el) 91.8 ml LVAs ap2 11.2 cm\S\2 LVLs ap2 5.2 cm ESV(MOD-sp2) 20.3 ml ESV(sp2-el) 20.4 ml EF(MOD-sp2) 77.7 % EF(sp2-el) 77.8 % LVLd %diff 4.5 % EDV(MOD-bp) 93.3 ml LVLs %diff 0.56 % ESV(MOD-bp) 24.6 ml EF(MOD-bp) 73.6 % SV(MOD-sp4) 62.9 ml SI(MOD-sp4) 32.2 ml/m\S\2 SV(MOD-sp2) 70.6 ml SI(MOD-sp2) 36.2 ml/m\S\2 SV(MOD-bp) 68.7 ml SI(MOD-bp) 35.2 ml/m\S\2 SV(sp4-el) 65.0 ml SI(sp4-el) 33.3 ml/m\S\2 SV(sp2-el) 71.4 ml SI(sp2-el) 36.6 ml/m\S\2 Doppler Measurements and Calculations MV E max shantal 98.7 cm/sec MV A max shantal 96.0 cm/sec MV E/A 1.0 MV dec time 0.25 sec Ao V2 max 149.3 cm/sec Ao max PG 8.9 mmHg Ao max PG (full) 4.3 mmHg MAUREEN(V,A) 2.1 cm\S\2 MARUEEN(V,D) 2.1 cm\S\2 LV V1 max PG 4.6 mmHg LV V1 max 107.3 cm/sec PA V2 max 117.0 cm/sec PA max PG 5.5 mmHg PI end-d shantal 86.3 cm/sec TR max shantal 183.8 cm/sec
[2017-02-01 16:13] VITALS: BP 121/66; PULSE 78; TEMP 36.9; O2SAT 96
[2017-02-01 16:50] VITALS: O2SAT 96
--- NOTE | 2017-02-01 17:02 | EMERGENCY ROOM VISIT NOTE ---
History Report prepared by Yuri: Noble Barron Under the Supervision of: Dr. Mandeep Segura M.D. First contact with patient: 09:46 Chief Complaint: CHEST PAIN Stated Complaint: CHEST PAIN History of Present Illness The patient is a 66 year old female who presents to the Emergency Room with complaints of an intermittent heaviness to her chest that started occurring 3 weeks ago. The last time she had this discomfort was this morning when she woke up. She is currently without her chest pain. Her pains are exacerbated by stress and exacerbation such as walking up stairs. When she has these episodes of pain, she also experiences jaw cramping, shortness of breath, and tingling in her fingers. She denies any leg swelling or diaphoresis. She notes that she has been having left thigh cramping without swelling for the past couple weeks as well. She denies any known cardiac disease or blood clot history. She has a past medical history of hypertension. The patient has also gained weight recently. Source of History: patient Onset: 3 weeks ago Position: chest Symptom Intensity: moderate Quality: other (heaviness) Timing: intermittent Modifying Factors (Worsening): exertion Associated Symptoms: No diaphoresis Note: When her chest pain is present, she experiences shortness of breath, tingling to her fingers, and jaw cramping. She is also having left thigh cramping. She denies any leg swelling. Review of Systems See HPI for pertinent positives & negatives. A total of 10 systems reviewed and were otherwise negative. Past Medical & Surgical Medical Problems: (1) Anxiety (2) Arachnoid cyst (3) Chest pain (4) Depression (5) HTN (hypertension) (6) Hyperlipemia (7) Hypothyroidism (8) Non-toxic multinodular goiter Surgical Problems: (1) H/O repair of left rotator cuff (2) H/O thyroidectomy (3) Hx of cholecystectomy (4) Hx of tonsillectomy (5) Hx of total knee arthroplasty Family History Denies any known family history of cardiac disease or blood clots. Social History Smoking Status: Never Smoker Smokeless Tobacco Use: No Drug Use: none Occupation Status: retired Current/Historical Medications Scheduled Biotin (Biotin 5000), 1 TAB PO HS Levothyroxine Sodium (Levothyroxine Sodium), 125 MCG PO QAM Nebivolol Hcl (Bystolic), 10 MG PO HS Potassium Chloride (Micro-K Ext Rel), 10 MEQ PO HS Simvastatin (Zocor), 20 MG PO HS Venlafaxine Hcl (Venlafaxine Extended Rel), 75 MG PO HS Venlafaxine Hcl (Venlafaxine Hcl Er), 150 MG PO QAM Zolpidem Tartrate (Zolpidem Tartrate), 10 MG PO HS Allergies Coded Allergies: No Known Allergies (Unverified , 02/01/17) Physical Exam Vital Signs Date Time Temp Pulse Resp B/P (MAP) Pulse Ox O2 Delivery O2 Flow Rate FiO2 02/01/17 12:25 99 Room Air 02/01/17 12:23 80 18 140/68 99 Room Air 02/01/17 10:54 79 18 143/75 98 Room Air 02/01/17 10:00 97 Room Air 02/01/17 10:00 83 02/01/17 09:40 36.4 82 20 136/80 97 Room Air Physical Exam Constitutional: Vital signs reviewed. Eyes: Pupils are equal round reactive to light. Conjunctiva are noninjected. ENT: Pharynx is clear without erythema or exudate. Mucous membranes are moist. Neck supple without meningeal signs. Respiratory: Clear to auscultation bilaterally. Breath sounds are equal bilaterally. Cardiovascular: Regular rate and rhythm. No rubs or gallops. GI: Soft, nondistended and nontender. Bowel sounds are present. Musculoskeletal: No peripheral edema. No lower extremity tenderness. Integumentary: No cyanosis. Neurological: The patient is awake and alert. No focal deficits. Psychiatric: Anxious affect. Medical Decision & Procedures ER Provider Diagnostic Interpretation: Radiology results as stated below per my review and the radiologist's interpretation: CHEST ONE VIEW PORTABLE CLINICAL HISTORY: cp dyspnea COMPARISON STUDY: 06/24/2012 FINDINGS: The bones soft tissues and hemidiaphragms are normal. The cardiomediastinal silhouette is normal. The lungs are clear. The pulmonary vasculature is normal. IMPRESSION: Negative chest. The above report was generated using voice recognition software. It may contain grammatical, syntax or spelling errors. Electronically signed by: Lai Hooper M.D. 02/01/2017 10:33 AM Dictated Date/Time: 02/01/2017 10:32 AM (CHEST FOR PE) ANGIO WITH CT DOSE: 317.43 mGy.cm HISTORY: Chest pain dyspnea TECHNIQUE: Multiaxial CT images of the chest were performed following the intravenous administration of contrast to evaluate the pulmonary arteries. Maximal intensity projection images were also obtained. A dose lowering technique was utilized adhering to the principles of ALARA. COMPARISON STUDY: None. FINDINGS: There is a normal caliber thoracic aorta with no evidence for dissection. There is no evidence for pulmonary embolus. No pleural effusions. No pneumothorax. The liver and spleen are unremarkable. No mediastinal or hilar lymphadenopathy. The central airways are patent. The lungs are clear. IMPRESSION: No evidence for pulmonary embolus. The lungs are clear. The above report was generated using voice recognition software. It may contain grammatical, syntax or spelling errors. Electronically signed by: Lai Hooper M.D. 02/01/2017 10:57 AM Dictated Date/Time: 02/01/2017 10:53 AM ULTRASOUND L VENOUS DOPP LOWER EXT UNILAT CLINICAL HISTORY: Left leg pain COMPARISON STUDY: No previous studies for comparison. FINDINGS: Real-time and color flow Doppler imaging were performed. Flow was seen within the femoral, popliteal and calf veins with no intraluminal thrombus demonstrated. The saphenous vein is patent. IMPRESSION: No evidence of left lower extremity DVT. Electronically signed by: Vasyl Jansen M.D. 02/01/2017 11:56 AM Dictated Date/Time: 02/01/2017 11:56 AM Laboratory Results 02/01/17 09:50 Red Blood Count 4.46, Mean Corpuscular Volume 92.4, Mean Corpuscular Hemoglobin 30.3, Mean Corpuscular Hemoglobin Concent 32.8, Mean Platelet Volume 10.9, Neutrophils (%) (Auto) 54.1, Lymphocytes (%) (Auto) 34.5, Monocytes (%) (Auto) 7.9, Eosinophils (%) (Auto) 2.6, Basophils (%) (Auto) 0.6, Neutrophils # (Auto) 3.82, Lymphocytes # (Auto) 2.43, Monocytes # (Auto) 0.56, Eosinophils # (Auto) 0.18, Basophils # (Auto) 0.04 02/01/17 09:50 Test 02/01/17 09:50 02/01/17 09:56 White Blood Count 7.05 K/uL (4.8-10.8) Red Blood Count 4.46 M/uL (4.2-5.4) Hemoglobin 13.5 g/dL (12.0-16.0) Hematocrit 41.2 % (37-47) Mean Corpuscular Volume 92.4 fL (80-100) Mean Corpuscular Hemoglobin 30.3 pg (25-34) Mean Corpuscular Hemoglobin Concent 32.8 g/dl (32-36) Platelet Count 223 K/uL (130-400) Mean Platelet Volume 10.9 fL (7.4-10.4) Neutrophils (%) (Auto) 54.1 % Lymphocytes (%) (Auto) 34.5 % Monocytes (%) (Auto) 7.9 % Eosinophils (%) (Auto) 2.6 % Basophils (%) (Auto) 0.6 % Neutrophils # (Auto) 3.82 K/uL (1.4-6.5) Lymphocytes # (Auto) 2.43 K/uL (1.2-3.4) Monocytes # (Auto) 0.56 K/uL (0.11-0.59) Eosinophils # (Auto) 0.18 K/uL (0-0.5) Basophils # (Auto) 0.04 K/uL (0-0.2) RDW Standard Deviation 47.0 fL (36.4-46.3) RDW Coefficient of Variation 14.0 % (11.5-14.5) Immature Granulocyte % (Auto) 0.3 % Immature Granulocyte # (Auto) 0.02 K/uL (0.00-0.02) Erythrocyte Sedimentation Rate 11 mm/hr (0-21) Prothrombin Time 10.1 SECONDS (9.0-12.0) Prothromb Time International Ratio 1.0 (0.9-1.1) Activated Partial Thromboplast Time 26.9 SECONDS (21.0-31.0) Partial Thromboplastin Ratio 1.0 Anion Gap 3.0 mmol/L (3-11) Estimated GFR () 99.7 Estimated GFR (Non- 86.1 BUN/Creatinine Ratio 20.1 (10-20) Calcium Level 8.5 mg/dl (8.5-10.1) Pro-B-Type Natriuretic Peptide 36 pg/ml (0-900) Bedside D-Dimer > 450 ng/mlFEU (0-450) Bedside Troponin I < 0.030 ng/ml (0-0.045) Laboratory results as reviewed by me. Medications Administered Medications (Trade) Dose Ordered Sig/Stephanie Route Start Time Stop Time Status Last Admin Dose Admin Aspirin (Aspirin Chew) 324 mg NOW STAT PO 02/01/17 09:54 02/01/17 09:55 DC 02/01/17 10:00 324 MG ECG Indication: chest pain Rate (beats per minute): 81 Rhythm: normal sinus Findings: no acute ischemic change, no ectopy ED Course 0946: The patient was evaluated in room A12B. A complete history and physical exam was performed. 0954: Ordered Aspirin Chew 324 mg PO 1026: The urine in the patient's bed persaud was malodorous so the nurse will obtain a catheter specimen. 1030: The patient is now feeling short of breath. She agreed to a CT of her chest. 1124: I spoke with Dr. Wood of Cardiology at this time. We discussed the patient's case. He recommended hospitalization for repeat cardiac enzymes and a resting echo. He does not recommend a stress test at this time. 1130: [facility] We discussed the patient and her results. The patient will be further evaluated by her for further management. Medical Decision This is a 66-year-old female presents with chest pain. Differential diagnosis includes unstable angina, AK, pulmonary embolism, GERD, anxiety. I did perform a limited focused review of portions of the patient's old chart on the electronic medical record. The patient was seen at preoperative testing today and noted that she had been having chest pain for several weeks. She was immediately sent to the ER for further evaluation. I did evaluate the patient as noted above. Patient is presenting with chest pain which is concerning for cardiac disease. She states it radiates into her jaw and also has arm pain. She does have a number of cardiac risk factors. She states today symptoms, on with exertion. IV access was established. The patient was placed on a continuous unit control worker. I did order and personally review the patient's 12-lead EKG and chest x-ray as described above. Her twelve -lead EKG is unremarkable. I did order and review the patient's blood work as noted in the electronic medical record. Troponin is negative but her d-dimer was elevated. After discussion with the patient, I did order a CT of the chest. I did review the images myself as well as the radiology report as described above. Doppler ultrasound of the left leg, where she had pain, was negative for DVT. I did discuss the test results with the patient. She does not have any symptoms at this time. I did recommend hospitalization for repeat cardiac enzymes and further evaluation. I did discuss the case with the gripper installer who also agreed and will perform a echocardiogram. I did discuss the case with the hospitalist and briefcase sewer. Medication Reconcilliation Current Medication List: was personally reviewed by me Blood Pressure Screening Patient's blood pressure: Elevated blood pressure Blood pressure disposition: Referred to PCP Consults Time Called: 1120 Consulting Physician: Dr. Wood - Cardiology Returned Call: 1124 We discussed the patient's case. He recommends further hospitalization with repeat cardiac enzymes and a resting echo. Additional Consults: Time Called: 1128 Consulted Physician: Candace [facility] Hospitalist Returned Call: 1130 Additional Comments: We discussed the patient and her results. The patient will be further evaluated by her. Impression Primary Impression: Precordial chest pain Additional Impression: Left leg pain Scribe Attestation The scribe's documentation has been prepared under my direct and personally reviewed by me in its entirety. I confirm that the note above accurately reflects all work, treatment, procedures, and medical decision making performed by me. Departure Information Dispostion Being Evaluated By Hospitalist Referrals Virgen Hutson M.D. (PCP) Patient Instructions My [facility] Problem Qualifiers
[2017-02-01 18:49] LABS: CKMB/CK RATIO 0.6 (0-3.0)
[2017-02-01 19:27] VITALS: BP 119/61; PULSE 77; TEMP 36.5; O2SAT 98
[2017-02-01] MEDS ORDERED: SODIUM CHLORIDE 0.9% 1000ML 1,000 ML IV SCH (19:45)
[2017-02-01] MEDS ORDERED: SIMVASTATIN 20 MG TAB PO SCH (21:00)
[2017-02-01] MEDS ORDERED: NEBIVOLOL HCL 5 MG TAB PO SCH (21:00)
[2017-02-01] MEDS ORDERED: BIOTIN PO SCH (21:00)
[2017-02-01] MEDS ORDERED: POTASSIUM CHLORIDE 10 MEQ TABCR PO SCH (21:00)
[2017-02-01] MEDS ORDERED: VENLAFAXINE HCL XR 75 MG CAPXR PO SCH (21:00)
[2017-02-01] MEDS ORDERED: ZOLPIDEM TARTRATE 10 MG TAB PO SCH (21:00)
[2017-02-01 23:22] VITALS: BP 127/64; PULSE 72; TEMP 36.7; O2SAT 97
[2017-02-02 02:39] LABS: CKMB/CK RATIO 0.8 (0-3.0)
[2017-02-02 04:00] VITALS: BP 111/64; PULSE 72; TEMP 36.6; O2SAT 95
[2017-02-02] MEDS ORDERED: LEVOTHYROXINE 125 MCG TAB PO SCH (06:00)
[2017-02-02] MEDS: HEPARIN SOD 5000 UNIT/0.5 ML CARP SQ SCH (06:21)
[2017-02-02 07:24] VITALS: BP 118/65; PULSE 76; TEMP 36.7; O2SAT 95
[2017-02-02 07:24] LABS: CHOLESTEROL/HDL RATIO 2.5; THYROID STIMULATING HORMONE 23.3 uIu/ml (0.300-4.500)
[2017-02-02] MEDS ORDERED: ASPIRIN 81 MG ECTAB PO SCH (09:00)
[2017-02-02] MEDS ORDERED: VENLAFAXINE HCL XR 150 MG CAPXR PO SCH (09:00)
[2017-02-02 12:02] VITALS: BP 128/75; TEMP 36.7; O2SAT 94
--- NOTE | 2017-02-02 12:07 | CARDIOLOGY PROGRESS NOTE ---
DATE: 02/02/2017 DATE: 02/02/2017 The patient seen and examined. Chart, medications, telemetry reviewed. SUBJECTIVE: The patient feels well this morning. He has had no further chest tightness or chest discomfort. Notes no dizziness or lightheadedness. Notes no tachypalpitations. Notes she has been taking medications as prescribed at home. OBJECTIVE: VITAL SIGNS: Heart rate 76, blood pressure is 118/65. HEAD, EYES, EARS, NOSE, AND THROAT: Normocephalic, atraumatic. Nares without discharge. Throat was clear. NECK: Supple without thyromegaly or lymphadenopathy. There are no carotid bruits. LUNGS: Clear to auscultation. CARDIOVASCULAR: Regular with normal S1, S2, no murmur, gallop or rub. ABDOMEN: Soft, nontender. No palpable hepatosplenomegaly. No hepatojugular reflux. EXTREMITIES: Without cyanosis or clubbing. There is no peripheral edema. There are intact distal pulses. LABORATORY DATA: Troponin I is 0.015 x3. No signs or symptoms of ischemia. Cholesterol was 144, LDL 61, HDL 57. TSH was elevated at 23.3, hemoglobin is 13.5. Telemetry reveals no arrhythmias. IMPRESSION: A 66-year-old female admitted for chest pain atypical for angina with negative enzymes, EKGs. She does have multiple risk factors and anticipates knee surgery in the upcoming month. Would recommend dobutamine stress echocardiography be scheduled post-hospital discharge. Would make no other adjustments in medications other than would recommend upward titration of thyroid replacement given the significant elevation in TSH. I have expressed to the patient that her ER evaluation was appropriate and if she would have sustained episodes once again she should consider further return with ultimate plans of stress testing for risk stratification.
[2017-02-02] MEDS ORDERED: LEVO137T3 PO (13:31)
[2017-02-02] MEDS ORDERED: ASPEC81 PO (13:31)
[2017-02-02 13:35] VITALS: BP 128/75; PULSE 76; TEMP 36.7; O2SAT 94
--- NOTE | 2017-02-02 13:35 | Discharge Instructions ---
Discharge Instructions Date of Service Feb 02, 2017. Admission Reason for Admission: Chest Pain Discharge Discharge Diagnosis / Problem: chest pain Discharge Goals Goal(s): Decrease discomfort, Improve function Activity Recommendations Activity Limitations: resume your previous activity . Instructions / Follow-Up Instructions / Follow-Up FOLLOWUP WITH FAMILY DOCTOR WITH IN ONE WEEK DOBUTAMINE STRESS TEST SOON POSSIBLE OUT PATIENT. NEW MEDICATION: ASPIRIN 81MG PO DAILY INCREASED LEVOTHYROXINE TO 137MCG PO DAILY. LAB : FOLLOWUP THYROID PROFILE IN 4-6 WEEKS WITH FAMILY DOCTOR. ( THYROID MEDICATION HAS BEEN INCREASED) Current Hospital Diet Patient's current hospital diet: AHA Diet (Heart Healthy) Discharge Diet Recommended Diet: AHA Diet (Heart Healthy) Pending Studies Studies pending at discharge: no Laboratory Results Lipid Panel Test 02/02/17 06:21 Range/Units Triglycerides Level 130 0-150 mg/dl Cholesterol Level 144 0-200 mg/dl HDL Cholesterol 57 mg/dl Cholesterol/HDL Ratio 2.5 LDL Cholesterol, Calculated 61 mg/dl Medical Emergencies . Who to Call and When: Medical Emergencies: If at any time you feel your situation is an emergency, please call 911 immediately. . Non-Emergent Contact Non-Emergency issues call your: Primary Care Provider . . "Provider Documentation" section prepared by Bear Adams. . VTE Core Measure Inpt VTE Proph given/why not?: Unfractionated heparin SQ
--- NOTE | 2017-02-02 18:41 | Progress Note ---
Internal Med Progress Note Date of Service: Feb 02, 2017. Provider Documentation: SUBJECTIVE: resting comfortably denies any chest pain or sob ambulated in room afebrile wants to go home OBJECTIVE: Vital Signs-as noted below Exam: General-alert and awake and not in distress ENT- normal hearing Neck-no neck masses Lungs-cta b/l no wheezing no crackles present Heart-s1 and s2 heard regular rate and rhythm no murmurs Abdomen-soft BS present non tender no distension Extremities- no edema no erythema Neuro-alert and awake moves extremities Lab data as noted below. ASSESSMENT & PLAN: CHEST PAIN R/O ACS. Risk factors: HTN, hyperlipidemia currently asymptomatic swrial CE and ekg unremarkable LDL and HDL at goal. Added ASA On beta chon - Bystolic Cardiology consulted and recommends out patient dobutamine stress test HTN Stable on bystolic HYPERLIPIDEMIA LDL 61, HDL 57, TG 130 continue zocor ANXIETY/DEPRESSION Pt with hx depression, anxiety feels better controlled on Effexor on e effexor on ambien HS prn insomnia HYPOTHYROIDISM/ HX MULTINODULAR GOITER S/P THYROIDECTOMY TSH elevated at 23.3 increased levothyroxine to 137mcg daily thyroid profile in 4-6 weeks as per PCP. discharged home Vital Signs: Date Time Temp Pulse Resp B/P (MAP) Pulse Ox O2 Delivery O2 Flow Rate FiO2 02/02/17 13:35 36.7 76 20 94 Room Air 02/02/17 12:02 36.7 20 128/75 (92) 94 Room Air 02/02/17 12:00 Room Air 02/02/17 08:00 Room Air 02/02/17 07:24 36.7 76 17 118/65 (82) 95 Room Air 02/02/17 04:00 Room Air 02/02/17 04:00 36.6 72 20 111/64 (80) 95 Room Air 02/02/17 00:07 Room Air 02/01/17 23:22 36.7 72 17 127/64 (85) 97 Room Air 02/01/17 19:45 Room Air 02/01/17 19:27 36.5 77 18 119/61 (80) 98 Lab Results: Results Past 24 Hours Test 02/02/17 02:00 02/02/17 06:21 Range/Units Total Creatine Kinase 242 26-192 U/L Creatine Kinase MB 1.9 0.5-3.6 ng/ml Creatine Kinase MB Ratio 0.8 0-3.0 Troponin I < 0.015 0-0.045 ng/ml Triglycerides Level 130 0-150 mg/dl Cholesterol Level 144 0-200 mg/dl HDL Cholesterol 57 mg/dl LDL Cholesterol, Calculated 61 mg/dl VLDL Cholesterol, Calculated 26 mg/dl Cholesterol/HDL Ratio 2.5 Thyroid Stimulating Hormone (TSH) 23.300 0.300-4.500 uIu/ml
--- NOTE | 2017-02-02 18:43 | Discharge Summary ---
Discharge Summary Date of Service Feb 02, 2017. Discharge Summary Admission Date: Feb 01, 2017 at 13:04 Discharge Date: Feb 02, 2017 Discharge Disposition: Home Principal Diagnosis: CHEST PAIN Secondary Diagnoses/Problems: 1) Anxiety Status: Chronic (2) Arachnoid cyst Status: Chronic (3) Depression Status: Chronic (4) HTN (hypertension) Status: Chronic (5) Hyperlipemia Status: Chronic (6) Hypothyroidism Status: Chronic (7) Non-toxic multinodular goiter Status: Chronic Procedures: CTA CHEST: No evidence for pulmonary embolus. The lungs are clear. LEFT LOWER EXT DOPPLER: No evidence of left lower extremity DVT. ECHO: Ejection Fraction = >70 %. * The basal septum is thickened and angulated consistent with sigmoid septum. * The left atrium is mildly dilated. * Grade I diastolic dysfunction, (abnormal relaxation pattern). * There is no pericardial effusion. * No significant valvular pathology. LEFT VENTRICULAR WALL MOTION NORMAL Consultations: CARDIOLOGY Medication Reconciliation New Medications: Levothyroxine Sodium (Levothyroxine Sodium) 137 Mcg Tab 1 TAB PO DAILY for 30 Days, #30 TAB 2 Refills Aspirin (Aspirin EC Low Dose) 81 Mg Ectab 81 MG PO QAM, #30 1 Refill Continued Medications: Biotin (Biotin 5000) 5 Mg Cap 1 TAB PO HS Nebivolol Hcl (Bystolic) 5 Mg Tab 10 MG PO HS Potassium Chloride (Micro-K Ext Rel) 10 Meq Capcr 10 MEQ PO HS Simvastatin (Zocor) 20 Mg Tab 20 MG PO HS Venlafaxine Hcl (Venlafaxine Extended Rel) 75 Mg Cap 75 MG PO HS Venlafaxine Hcl (Venlafaxine Hcl Er) 150 Mg Tab 150 MG PO QAM Zolpidem Tartrate (Zolpidem Tartrate) 10 Mg Tab 10 MG PO HS Discontinued Medications: Levothyroxine Sodium (Levothyroxine Sodium) 125 Mcg Tab 125 MCG PO QAM Admission Information HPI (per Admitting provider): Pt is 66 y/o M with PMH HTN, hyperlipidemia, anxiety/depression, non-toxic multinodular goiter s/p thyroidectomy who presented to ER from out pt pre-op testing with c/o CP. Pt states past 3 weeks with intermittent chest heaviness with associated SOB. This occurs with climbing stairs and when feeling anxious. Reports when sits down and rests that the chest heaviness and SOB resolves. Had CP this morning when she was feeling anxious which resolved after a couple of minutes. No current CP Denies any associated diaphoresis, N/V. Pt admits to a lot of stress in her life with taking care of her who had a stroke a couple of weeks ago and stress with a daughter involved in illicit drugs. Does c /o intermittent sweats at times over past couple of years. C/O left jaw spasm and sometimes pain that is not associated with CP/SOB. She is following with ENT currently and pt reports suspect eustachian tube problem. Also c/o some intermittent tingling sensation left arm radiates to L fingers that is not associated with CP/SOB. Reports hx some Left arm pain approx 15 years ago that she was referred to cardiology in [place] and pt reports negative ECHO at that time and was found to have L rotator cuff tear. Pt reports intermittent "wooziness" when walking and had MRI showing arachnoid cyst and followed with neurosurgery and reports non-surgical. She reports gaining approx 20 pounds over the past year which she relates is less active with her L knee pain and stressed and eating more. She is scheduled for L knee replacement Mar 20, 2017. Denies fever/chills, N/V/D/C, RDZ, dizziness, syncope, vision changes, neck pain , orthopnea, palpitations, cough, sore throat, choking, otalgia, rhinorrhea, abdominal pain, extremity weakness, extremity edema, rashes, urinary symptoms. In ER vitals stable. Had negative initial troponin, negative CT chest for PE. EKG NSR rate 81, no ST elevations. Physical Exam (per Admitting): General Appearance: WD/WN, no apparent distress Head: normocephalic, atraumatic Eyes: normal inspection, PERRL, EOMI, sclerae normal ENT: normal ENT inspection, pharynx normal, + pertinent finding Neck: supple, no JVD, no carotid bruits, trachea midline Respiratory/Chest: chest non-tender, lungs clear, normal breath sounds, no respiratory distress, no accessory muscle use Cardiovascular: regular rate, rhythm, no murmur, normal peripheral pulses Abdomen/GI: normal bowel sounds, non tender, soft Extremities/Musculoskelatal: no calf tenderness, normal capillary refill, no pedal edema, + pertinent finding Neurologic/Psych: alert, normal mood/affect, oriented x 3 Skin: normal color, warm/dry, no rash Hospital Course CHEST PAIN R/O ACS. Risk factors: HTN, hyperlipidemia currently asymptomatic swrial CE and ekg AND ECHO unremarkable LDL and HDL at goal. Added ASA On beta chon - Bystolic Cardiology consulted and recommends out patient dobutamine stress test HTN Stable on bystolic HYPERLIPIDEMIA LDL 61, HDL 57, TG 130 continue zocor ANXIETY/DEPRESSION Pt with hx depression, anxiety feels better controlled on Effexor on e effexor on ambien HS prn insomnia HYPOTHYROIDISM/ HX MULTINODULAR GOITER S/P THYROIDECTOMY TSH elevated at 23.3 increased levothyroxine to 137mcg daily thyroid profile in 4-6 weeks as per PCP. discharged home Total time spent on discharge = 35MINUTES This includes examination of the patient, discharge planning, medication reconciliation, and communication with other providers. Discharge Instructions Discharge Instructions Date of Service Feb 02, 2017. Admission Reason for Admission: Chest Pain Discharge Discharge Diagnosis / Problem: chest pain Discharge Goals Goal(s): Decrease discomfort, Improve function Activity Recommendations Activity Limitations: resume your previous activity . Instructions / Follow-Up Instructions / Follow-Up FOLLOWUP WITH FAMILY DOCTOR WITH IN ONE WEEK DOBUTAMINE STRESS TEST SOON POSSIBLE OUT PATIENT. NEW MEDICATION: ASPIRIN 81MG PO DAILY INCREASED LEVOTHYROXINE TO 137MCG PO DAILY. LAB : FOLLOWUP THYROID PROFILE IN 4-6 WEEKS WITH FAMILY DOCTOR. ( THYROID MEDICATION HAS BEEN INCREASED) Current Hospital Diet Patient's current hospital diet: AHA Diet (Heart Healthy) Discharge Diet Recommended Diet: AHA Diet (Heart Healthy) Pending Studies Studies pending at discharge: no Laboratory Results Lipid Panel Test 02/02/17 06:21 Range/Units Triglycerides Level 130 0-150 mg/dl Cholesterol Level 144 0-200 mg/dl HDL Cholesterol 57 mg/dl Cholesterol/HDL Ratio 2.5 LDL Cholesterol, Calculated 61 mg/dl Medical Emergencies . Who to Call and When: Medical Emergencies: If at any time you feel your situation is an emergency, please call 911 immediately. . Non-Emergent Contact Non-Emergency issues call your: Primary Care Provider . . "Provider Documentation" section prepared by Bear Adams. . VTE Core Measure Inpt VTE Proph given/why not?: Unfractionated heparin SQ
== END 2017-02-02 14:04 | disposition home or self-care (01) ==
LOC: C.EDB 09:40 → ENRESERV 12:08 → C.2T 13:04
PROVIDERS: ADMIT Hospitalist; ATTEND Internal Medicine
DX: R07.9 Chest pain, unspecified (principal); F41.9 Anxiety disorder, unspecified; F32.9 Major depressive disorder, single episode, unspecified; I10 Essential (primary) hypertension; E78.5 Hyperlipidemia, unspecified; E03.9 Hypothyroidism, unspecified; Z79.82 Long term (current) use of aspirin; Z90.89 Acquired absence of other organs; Z90.49 Acquired absence of other specified parts of digestive tract; Z83.3 Family history of diabetes mellitus; Z80.1 Family history of malignant neoplasm of trachea, bronchus and lung; Z80.0 Family history of malignant neoplasm of digestive organs; Z80.51 Family history of malignant neoplasm of kidney

== ENCOUNTER 2017-04-18 10:41 | Inpatient (IN) | payer OTHER ==
[2017-03-01 10:36] VITALS: BMI 37.0
--- NOTE | 2017-03-01 11:11 | PAT Medication Instructions ---
Service Date Mar 01, 2017. Current Home Medication List Biotin (Biotin 5000), 1 TAB PO HS Levothyroxine Sodium (Levothyroxine Sodium), 1 TAB PO QAM Nebivolol Hcl (Bystolic), 5 MG PO HS Potassium Chloride (Micro-K Ext Rel), 10 MEQ PO HS Simvastatin (Zocor), 20 MG PO HS Venlafaxine Hcl (Venlafaxine Extended Rel), 75 MG PO HS Venlafaxine Hcl (Venlafaxine Hcl Er), 150 MG PO QAM Zolpidem Tartrate (Zolpidem Tartrate), 10 MG PO HS Medication Instructions For Your Scheduled Surgery - Hold the following medications 2 weeks prior to surgery: Biotin (Biotin 5000), 1 TAB PO HS - Take the following medications the morning of surgery with a sip of water OTHERWISE NOTHING TO EAT OR DRINK AFTER MIDNIGHT: Levothyroxine Sodium (Levothyroxine Sodium), 1 TAB PO QAM Venlafaxine Hcl (Venlafaxine Hcl Er), 150 MG PO QAM - Take the following medications as scheduled the night before surgery: Nebivolol Hcl (Bystolic), 5 MG PO HS Zolpidem Tartrate (Zolpidem Tartrate), 10 MG PO HS Potassium Chloride (Micro-K Ext Rel), 10 MEQ PO HS Simvastatin (Zocor), 20 MG PO HS Venlafaxine Hcl (Venlafaxine Extended Rel), 75 MG PO HS Aspirin 81mg If you have any questions please call us at [phone] or [phone] or [phone]
[2017-03-28 16:39] LABS: BASO % 0.7 %; BASO ABS # 0.04 K/uL (0-0.2); EOS % 2.2 %; EOS ABS # 0.13 K/uL (0-0.5); HEMATOCRIT 39.8 % (37-47); HEMOGLOBIN 12.6 g/dL (12.0-16.0); IG# 0.01 K/uL (0.00-0.02); LYMPH % 36.4 %; LYMPH ABS # 2.15 K/uL (1.2-3.4); MEAN CELL VOLUME 92.8 fL (80-100); MEAN CORPUSCULAR HEMOGLOBIN 29.4 pg (25-34); MEAN CORPUSCULAR HGB CONC 31.7 g/dl (32-36); MONO % 6.9 %; MONO ABS # 0.41 K/uL (0.11-0.59); NEUT % 53.6 %; NEUT ABS # 3.16 K/uL (1.4-6.5); PLATELET COUNT 205 K/uL (130-400); RED CELL DISTRIBUTION WIDTH CV 13.7 % (11.5-14.5); RED CELL DISTRIBUTION WIDTH SD 46.5 fL (36.4-46.3)
[2017-03-28 16:51] LABS: PTT PATIENT 26.6 SECONDS (21.0-31.0)
[2017-03-28 17:06] LABS: CALCIUM 8.4 mg/dl (8.5-10.1); CREATININE 0.62 mg/dl (0.60-1.20); POTASSIUM 3.5 mmol/L (3.5-5.1)
[2017-03-29 09:52] VITALS: BMI 36.0
--- NOTE | 2017-04-13 10:20 | HISTORY & PHYSICAL EXAMINATION ---
DATE OF ADMISSION: 04/18/2017 CHIEF COMPLAINT: Left knee pain. HISTORY OF PRESENT ILLNESS: A 66-year-old woman who presents for treatment of her left knee. She has got a long history of bilateral knee pain and discomfort. She had her right knee replaced by Dr. Freeman about 2 years ago. She has continued to be debilitated by left knee pain. We had actually scheduled for surgery in the past that she had to cancel due to some thyroid surgery. She would now like to have her knee fixed. She has got global pain in the knee. It is increased with weightbearing. The more she walks, the more it hurts. It does swell. She would like to proceed with surgery. PAST MEDICAL HISTORY: 1. Hypertension. 2. Elevated cholesterol. 3. Hypothyroidism. 4. Anxiety/depression. 5. Arthritis. 6. Hiatal hernia. 7. Obesity with a BMI of 37. PAST SURGICAL HISTORY: 1. Include thyroid surgery. 2. Arm surgery. 3. Right knee replacement [address] Freeman. ALLERGIES: None. CURRENT MEDICINES: 1. Venlafaxine 75 mg. 2. Bystolic 5 mg. 3. Potassium 10 mEq a day. 4. Levothyroxine 125 mcg. 5. Simvastatin 20 mg a day. 6. Zolpidem 10 mg a day. 7. Biotin 5000 mg a day. SOCIAL HISTORY: A 66-year-old female patient. No significant alcohol history. FAMILY HISTORY: Negative for diabetes, neurologic problems, vascular problems, or blood clots. REVIEW OF SYSTEMS: Negative for diabetes. Denies any chest pain or shortness of breath. She did recently have a cardiac workup done through the ER which was negative. No history of DVT or PE. PHYSICAL EXAMINATION: GENERAL: Reveals a healthy pleasant, middle-aged female. She looks to be in reasonably good health. HEENT: Benign. NECK: Supple. No lymphadenopathy. LUNGS: Clear to auscultation. HEART: Has a regular rate and rhythm. ABDOMEN: Soft, nontender, nondistended. EXTREMITIES: Grossly neurovascularly intact except as follows: Examination of the left knee reveals the patient walks independently. She has a slight varus alignment to her knee. Small to moderate sized knee effusion. Range of motion is 5-120. No instability. Some crepitance with knee motion. She is tender in the medial joint line. X-RAYS: X-rays of the left knee reveal advanced medial compartment DJD. She has got complete loss of the medial joint space. She has got osteophytes off the medial femoral condyle and medial tibial plateau. ASSESSMENT: A 66-year-old white female 2 years out from a right knee replacement done elsewhere with left knee degenerative joint disease. She would like to now have her left knee fixed as well. The shots helped just temporarily. PLAN: We will take her to the operating room and do a left total knee replacement. The risks and benefits of this procedure were explained to the patient including but not limited to DVT, PE, , infection, neurological injury, vascular injury, bleeding problem, pain, limited range of motion, stiffness, failure to relieve symptoms, incomplete relief of symptoms, need for further surgery in the future, fracture, leg length inequality, nerve palsy, need for blood transfusion, etc. The patient understands and desires to proceed. Informed consent was obtained. We did talk to her about taking her beta chon morning of surgery. She is planning to be discharged home and using [facility] home health program. COCO
[~2017-04-18] VITALS: Ht 157.5 cm; Wt 89.1 kg
[~2017-04-18 10:41] MED LIST changes: +ACETAMINOPHEN 500 MG TAB PO SCH; +ASPI-461 PO; -ASPI1CHW12; +ATROPINE SULFATE 0.1 MG/ML 5ML SYR IV PRN; +BISA-16 PO; +BUPIVACAINE 0.5 % 5 MG/1 ML PF 10ML VIAL ONE; +BUPIVACAINE LIPOSOME 266 MG, BUPIVACAINE/EPINEPHRINE INJ 50 ML, SODIUM CHLORIDE 0.9% PF... INFIL SCH; +CEFAZOLIN 2000MG IV PUSH 15 ML IV SCH; +EpHEDrine SULFATE INJ 50 MG/ML AMP IV PRN; +FAMOTIDINE 20 MG TAB PO SCH; +FENTANYL CITRATE INJ 50 MCG/1 ML 2 ML VIAL IV PRN; +FENTANYL CITRATE INJ 50 MCG/1 ML 2 ML VIAL ONE; +GABAPENTIN 300 MG CAP PO SCH; +HYDROmorphone INJ 1 MG/ML SYR IV PRN; +LACTATED RINGER'S 1000ML 1,000 ML IV SCH; +LACTATED RINGER'S 1000ML 500 ML IV SCH; +LACTATED RINGER'S 1000ML IV SCH; +METOCLOPRAMIDE HCL 10 MG TAB PO SCH; +MIDAZOLAM HCL 1 MG/ML 2ML VIAL ONE; -MULT-506 PO; +ONDANSETRON INJ 2 MG/ML 2 ML VIAL IV PRN; +SCOPOLAMINE 1.5 MG TDSY TD SCH; +TRANEXAMIC ACID INJ 1,000 MG x 1 Bag Preop IV SCH
[2017-04-18 11:22] VITALS: BP 127/71; PULSE 78; TEMP 36.6; O2SAT 97; Ht 157.5 cm; Wt 89.1 kg
[2017-04-18] MEDS ORDERED: NURSING VERBAL MED ORDER STA (12:21)
[2017-04-18] MEDS ORDERED: SODIUM CHLORIDE 0.9% 1000ML 1,000 ML IV ONE (12:30)
[2017-04-18] MEDS ORDERED: LIDOCAINE HCL 2% 2 ML VIAL (20MG/ML) ONE (12:43)
[2017-04-18] MEDS ORDERED: ONDANSETRON INJ 2 MG/ML 2 ML VIAL ONE (12:44)
[2017-04-18] MEDS ORDERED: PROPOFOL IV EMULSION 10 MG/ML 20 ML VIAL IV ONE (12:44)
[2017-04-18] MEDS ORDERED: SODIUM CHLORIDE 0.9% PF 50 ML VIAL ONE (13:01)
[2017-04-18] MEDS ORDERED: BACITRACIN 50000 UNIT VIAL ONE (13:01)
[2017-04-18] MEDS ORDERED: BUPIVACAINE LIPOSOME 1/3% 266 MG/20 ML VIAL INFIL ONE (13:01)
[2017-04-18] MEDS ORDERED: BUPIVACAINE 0.25% 30 ML VIAL ONE (13:03)
[2017-04-18] MEDS ORDERED: EpINEphrine INJ 1MG/ML AMP 1 MG/ML AMP ONE (13:04)
[2017-04-18] MEDS ORDERED: VANCOMYCIN HCL 1000MG/20ML VIAL ONE (13:19)
--- NOTE | 2017-04-18 14:55 | [facility] Post Operative Brief Note ---
Immediate Operative Summary Operative Date Apr 18, 2017. Pre-Operative Diagnosis Left Knee Advanced Medial Compartment Degenerative Joint Disease Post-Operative Diagnosis Left Knee Advanced Medial Compartment Degenerative Joint Disease Procedure(s) Performed Left Total Knee Arthroplasty Surgeon Dr. Yu Neurosurgery Spine Physician Surgeon(s) YEIN Olson Estimated Blood Loss 50 ml Findings Consistent with Post-Op Diagnosis Fluids (cc crystalloids) 1200 cc Specimens A. Left Knee Bone and Tissue Anesthesia Type MAC Spinal Regional Complication(s) none Disposition Accompanied Pt To Recover: no Disposition: Recovery Room / PACU
[2017-04-18] MEDS ORDERED: HYDROmorphone INJ 0.5 MG/0.5 ML SYR IV PRN (15:00)
[2017-04-18] MEDS ORDERED: METOCLOPRAMIDE HCL INJ 5 MG/ML 2 ML VIAL IV PRN (15:00)
[2017-04-18] MEDS ORDERED: ONDANSETRON INJ 2 MG/ML 2 ML VIAL IV PRN (15:00)
[2017-04-18] MEDS ORDERED: BISACODYL 10 MG SUPP PR PRN (15:00)
[2017-04-18] MEDS ORDERED: MAGNESIUM HYDROXIDE SUSP 30 ML UDC PO PRN (15:00)
[2017-04-18] MEDS ORDERED: ALUMINUM/MAGNESIUM/SIMETH (MAALOX MAX) 30 ML UDC PO PRN (15:00)
[2017-04-18] MEDS ORDERED: ZOLPIDEM TARTRATE 5 MG TAB PO PRN (15:00)
--- NOTE | 2017-04-18 15:42 | DIAGNOSTIC IMAGING REPORT ---
TWO VIEWS LEFT KNEE CLINICAL HISTORY: Postoperative examination. FINDINGS: AP and crosstable lateral portable views of the left knee are obtained. A left knee arthroplasty is in near anatomic alignment. There has been undersurface remodeling of the patella. No acute fracture is seen. There are expected postoperative changes around the knee including skin clips, soft tissue edema, and subcutaneous gas. IMPRESSION: Expected postoperative changes status post left knee arthroplasty. No acute fracture is seen. Electronically signed by: Trevor Chakraborty M.D. 04/18/2017 3:41 PM Dictated Date/Time: 04/18/2017 3:41 PM
--- NOTE | 2017-04-18 15:43 | Anesthesiology Progress Note ---
Anesthesia Post Op Note Date & Time Apr 18, 2017 at 15:43 Vital Signs Pain Intensity: 0 Vital Signs Past 12 Hours Date Time Temp Pulse Resp B/P (MAP) Pulse Ox O2 Delivery O2 Flow Rate FiO2 04/18/17 15:40 36.4 69 16 129/70 100 Nasal Cannula 2 04/18/17 15:30 71 16 114/61 100 Nasal Cannula 2 04/18/17 15:20 72 15 121/59 100 Nasal Cannula 2 04/18/17 15:10 74 14 118/55 100 Oxymask 8 04/18/17 15:02 36.5 75 16 120/55 100 Oxymask 8 04/18/17 11:22 36.6 78 18 127/71 97 Room Air Notes Mental Status: alert / awake / arousable, participated in evaluation Pt Amnestic to Procedure: Yes Nausea / Vomiting: adequately controlled Pain: adequately controlled Airway Patency, RR, SpO2: stable & adequate BP & HR: stable & adequate Hydration State: stable & adequate Neuraxial Anesthesia: was administered, sensory block is resolving Anesthetic Complications: no major complications apparent
[2017-04-18] MEDS: CHECK SCOPOLAMINE PATCH PLACEMENT SCH (16:00)
[2017-04-18 17:00] VITALS: BP 129/72; PULSE 69; TEMP 36.6; O2SAT 100
[2017-04-18] MEDS ORDERED: SILVER SULFADIAZINE 1% CR 50 GM JAR EXT PRN (18:00)
[2017-04-18] MEDS: FERROUS GLUCONATE 324 MG TAB PO SCH (18:09)
[2017-04-18 18:15] VITALS: BP 138/78; PULSE 78; TEMP 36.3; O2SAT 99
[2017-04-18] MEDS: KETOROLAC TROMETHAMINE 15 MG/ML VIAL IV. SCH (18:30)
[2017-04-18] MEDS: OXYCODONE HCL IR 5 MG TAB (IMMEDIATE RELEASE) PO PRN (18:50)
[2017-04-18 19:28] VITALS: BP 127/75; PULSE 82; TEMP 36.6; O2SAT 98
[2017-04-18] MEDS ORDERED: BIOTIN PO SCH (21:00)
[2017-04-18] MEDS ORDERED: TRANEXAMIC ACID INJ 1,000 MG in SODIUM CHLORIDE 0.9% 100ML 100 ML IV SCH (21:00)
[2017-04-18] MEDS: SIMVASTATIN 20 MG TAB PO SCH (21:20)
[2017-04-18] MEDS: TAPENTADOL ER 50 MG TABCR PO SCH (21:20)
[2017-04-18] MEDS: VENLAFAXINE HCL XR 75 MG CAPXR PO SCH (21:20)
[2017-04-18] MEDS: BISACODYL 5 MG TABEC PO SCH (21:20)
[2017-04-18] MEDS: ASPIRIN 81 MG ECTAB PO SCH (21:20)
[2017-04-18] MEDS: CEFAZOLIN IV 2,000 MG in SYRINGE 0 ML IV SCH (21:20)
[2017-04-18] MEDS: ZOLPIDEM TARTRATE 10 MG TAB PO SCH (21:20)
[2017-04-18] MEDS: SENNA 8.6 MG TAB PO SCH (21:21)
[2017-04-18] MEDS: ACETAMINOPHEN 500 MG TAB PO SCH (21:21)
[2017-04-18] MEDS: NEBIVOLOL HCL 5 MG TAB PO SCH (21:21)
[2017-04-18] MEDS: POTASSIUM CHLORIDE 10 MEQ TABCR PO SCH (21:22)
[2017-04-18] MEDS: DOCUSATE SODIUM 100 MG CAP PO SCH (21:22)
[2017-04-18 23:02] VITALS: BP 116/57; PULSE 86; TEMP 36.7; O2SAT 94
[2017-04-19] VITALS (7 sets, daily range): BP systolic 115–125; BP diastolic 67–84; PULSE 74–85; TEMP 36.8–37; O2SAT 95–96
[2017-04-19] MEDS: D5W AND 1/2NSS + 20MEQ KCL 1,000 ML IV SCH ×3 (00:17→07:59)
[2017-04-19] MEDS: CHECK SCOPOLAMINE PATCH PLACEMENT SCH ×3 (00:17→16:00)
[2017-04-19] MEDS: KETOROLAC TROMETHAMINE 15 MG/ML VIAL IV. SCH ×4 (00:21→18:20)
[2017-04-19] MEDS: CEFAZOLIN IV 2,000 MG in SYRINGE 0 ML IV SCH (05:17)
[2017-04-19] MEDS: ACETAMINOPHEN 500 MG TAB PO SCH ×3 (05:25→21:44)
[2017-04-19] MEDS: LEVOTHYROXINE 125 MCG TAB PO SCH (05:25)
[2017-04-19 07:51] LABS: HEMATOCRIT 33.8 % (37-47); HEMOGLOBIN 10.9 g/dL (12.0-16.0); MEAN CELL VOLUME 91.6 fL (80-100); MEAN CORPUSCULAR HEMOGLOBIN 29.5 pg (25-34); MEAN CORPUSCULAR HGB CONC 32.2 g/dl (32-36); MEAN PLATELET VOLUME 10.8 fL (7.4-10.4); PLATELET COUNT 162 K/uL (130-400); RED CELL DISTRIBUTION WIDTH CV 13.9 % (11.5-14.5); RED CELL DISTRIBUTION WIDTH SD 46.9 fL (36.4-46.3); WHITE BLOOD COUNT 7.86 K/uL (4.8-10.8)
--- NOTE | 2017-04-19 07:52 | PROGRESS NOTE ---
DATE: 04/19/2017 SUBJECTIVE: A 66-year-old female postop day #1 from a left knee replacement. She is doing well. She had a good night. Pain is controlled. No chest pain or shortness of breath. Not feeling dizzy or lightheaded. OBJECTIVE: VITAL SIGNS: Temperature is 36.8. Vital signs stable. GENERAL: Physical examination reveals a pleasant elderly female. I had to wake her this morning. LUNGS: Clear to auscultation. HEART: Regular rate and rhythm. ABDOMEN: Soft, nontender, and nondistended. EXTREMITIES: Grossly neurovascularly intact except as follows: Examination of the left leg reveals the leg to be well aligned. Dressing is clean, dry and intact. She can dorsiflex and plantarflex her foot appropriately. She is neurologically intact. LABORATORY DATA: Labs are pending. ASSESSMENT: A 66-year-old female postop day #1 from a left knee replacement, doing well. Pain is controlled. She is neurologically intact. PLAN: 1. DVT prophylaxis including thigh-high TEDs, SCDs, and aspirin twice a day. 2. PT/OT. Weightbear as tolerated. Left total knee protocol. 3. Pain control. Doing well with current pain regimen. 4. Disposition: She is planning to be discharged to home with some home health once adequately recovered.
--- NOTE | 2017-04-19 07:59 | OPERATIVE REPORT ---
DATE OF OPERATION: 04/18/2017 SURGEON: Jose Guadalupe Yu MD. METAL RECLAMATION KETTLE TENDER: YENI Colmenares. PREOPERATIVE DIAGNOSIS: Left knee degenerative joint disease. POSTOPERATIVE DIAGNOSIS: Same. PROCEDURE PERFORMED: Left cemented posterior stabilized total knee arthroplasty. COMPLICATIONS: None. ESTIMATED BLOOD LOSS: 50 mL FLUID REPLACEMENT: 1200 mL crystalloid fluid replacement. TOURNIQUET TIME: 59 minutes at 300 mmHg. ANESTHESIA: Spinal with adductor canal block. DRAINS: None. SPECIMENS: Left knee sent for pathology. OPERATIVE INDICATIONS: The patient is a 66-year-old female who has had a long history of bilateral knee pain and discomfort and has been through extensive conservative care. She underwent a right knee replacement done 2 years ago and has done pretty well from that. She continues to be bothered and limited by her left knee pain and discomfort. She had actually scheduled surgery several times before but had to cancel. She has now elected to proceed with total knee arthroplasty. OPERATIVE FINDINGS: Operative findings revealed advanced left knee DJD. She had extensive grade 4 changes of the medial femoral condyle and medial tibial plateau. She had a moderate-sized joint effusion. She has focal grade 4 changes in the patellofemoral compartment. Her lateral compartment showed age-related changes. OPERATIVE IMPLANTS: Operative implants consisted of: 1. A Biomet Vanguard size 65 left posterior stabilized femoral component. 2. Biomet size 71 tibial tray. 3. A 10 mm posterior stabilized polyethylene insert. 4. A 28 x 8 all poly patella. OPERATIVE PROCEDURE: The patient was taken to the operating room, identified and placed on the operating table in supine position. All contact areas were appropriately padded. IV antibiotics provided by anesthesia team. A spinal anesthetic and adductor canal block had been provided in the holding area. Bourgeois catheter was placed in sterile fashion. A left thigh tourniquet was then placed. The left lower extremity was then prepped and draped in usual sterile fashion. The left leg was elevated and exsanguinated with Esmarch and tourniquet was placed at 300 mmHg. An anterior approach to the left knee was then performed through a longitudinal incision centered over the patella. Sharp dissection was carried out through the subcutaneous tissues down to the level of the extensor mechanism. A medial parapatellar arthrotomy incision was made. Subperiosteal dissection was carried out medially. The fat pad was dissected from beneath the patellar tendon. The lateral patellofemoral ligament was released. Patella was everted and knee was flexed. The osteophytes were taken off the distal femur. The ACL and PCL were then released from the distal femur and the tibia subluxated anteriorly. The external tibial alignment jig was then placed in the anterior face of the tibia and adjusted 14 mm medially. Proximal tibial cut was made to remove about a millimeter or 2 of bone from the most deficient aspect of the medial tibial plateau. The tibia was then sized to a size 71. Some osteophytes were taken off medial and posteromedially. Attention was then drawn to the femur. The distal femur was entered with a sharp drill. Intramedullary canal was suctioned. A left 5-degree valgus cutting guide was placed. Distal femoral cutting block was pinned in place. Distal femoral cut was made to take an additional 3 mm of bone off the distal femur. The femur was then sized to a size 65. We did downsize this slightly. The AP cutting block was pinned parallel to the epicondylar axis which was 6 degrees. I checked this several times and verified it as correct. The anterior cut, anterior chamfer cut, posterior cut and posterior chamfer cuts were made. Box cutting guide was placed and adjusted slightly lateral and the box cut was made. The knee was flexed. The remnants of medial and lateral menisci were excised. The osteophytes were taken off the posterior aspect of the femur. A trial femoral component was placed. Tibial tray was pinned in maximum external rotation, and drill and stem punch were used to create defect in proximal tibia for the tibial tray. The knee was then trialed and a 10 mm insert fit most appropriately. Attention was then drawn to the patella. The patella was cleaned of all soft tissues. Patella thickness measured about 22 mm in thickness and was cut down to 13. It was sized to a size 28 patella. Lug holes were drilled for a 28 patella. Lateral osteophytes removed. Patella button was placed. Knee was taken through range of motion and the patella tracked nicely with no thumbs test. Attention was then drawn toward placement of permanent components. All trial components were removed. A bone plug was placed in the distal femur to limit blood loss. A double batch of Palacos G cement was mixed. A Biomet size 65 left posterior stabilized femoral component, a size 71 tibial tray, a 10 mm posterior stabilized polyethylene insert and a 28 x 8 all poly patella were then cemented in place. Knee was brought out into full extension until the cement hardened. 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 This is a questionable MRSA infection. Once the cement hardened, the knee was irrigated extensively. I injected locally with 100 mL of combination of 20 mL of Exparel, 30 mL of normal saline, 50 mL of 0.25% Marcaine with epinephrine. The patient did receive 1 gram of tranexamic acid. The tourniquet was then let down for a final tourniquet time of 59 minutes. Hemostasis was assured with the use of electrocautery. The wound was once again irrigated. The extensor mechanism was then closed with a combination of #1 PDS suture and #1 Vicryl suture in a [id number] fashion. Extensor mechanism was checked and found to be intact. Subcutaneous tissues were then closed with 2-0 Dexon suture in a buried interrupted fashion. Skin was closed skin dominick. Leg was then cleaned and dried, and a sterile dressing of Xeroform, 4 x 4's, sterile cast padding and Dylon bandage. The patient was then transferred to the recovery room in stable condition. The patient tolerated the procedure well with no complications. All needle and sponge counts were correct at the end of the operation. I attest to the content of the Intraoperative Record and any orders documented therein. Any exceptions are noted below. COCO
[2017-04-19 08:23] LABS: CALCIUM 7.6 mg/dl (8.5-10.1); CREATININE 0.72 mg/dl (0.60-1.20); POTASSIUM 4.1 mmol/L (3.5-5.1)
[2017-04-19] MEDS: DOCUSATE SODIUM 100 MG CAP PO SCH ×2 (10:14→21:44)
[2017-04-19] MEDS: ASPIRIN 81 MG ECTAB PO SCH ×2 (10:14→21:43)
[2017-04-19] MEDS: FERROUS GLUCONATE 324 MG TAB PO SCH ×3 (10:14→18:20)
[2017-04-19] MEDS: VENLAFAXINE HCL XR 150 MG CAPXR PO SCH (10:15)
[2017-04-19] MEDS: MULTIVITAMIN TAB PO SCH (10:15)
[2017-04-19] MEDS: OXYCODONE HCL IR 5 MG TAB (IMMEDIATE RELEASE) PO PRN (10:16)
[2017-04-19] MEDS: TAPENTADOL ER 50 MG TABCR PO SCH ×2 (10:16→21:44)
[2017-04-19] MEDS: PANTOprazole SOD 40 MG TAB PO SCH (10:16)
[2017-04-19] MEDS ORDERED: ASPEC81 PO (19:08)
[2017-04-19] MEDS ORDERED: ACET-24 PO (19:08)
[2017-04-19] MEDS ORDERED: RXC5 PO (19:08)
[2017-04-19] MEDS ORDERED: FRRG PO (19:08)
--- NOTE | 2017-04-19 19:11 | Discharge Instructions ---
Discharge Instructions Date of Service Apr 19, 2017. Admission Reason for Admission: Left Knee Degenerative Joint Disease, Knee Pain Discharge Discharge Diagnosis / Problem: Left Knee Replacement Discharge Goals Goal(s): Decrease discomfort, Improve function, Increase independence, Improve disease control, Therapeutic intervention Activity Recommendations Activity Limitations: per Instructions/Follow-up section . Instructions / Follow-Up Instructions / Follow-Up ACTIVITY RECOMMENDATIONS: Physical Therapy: * You will go to physical therapy three times each week for four to six weeks after your surgery in order to regain your knee range of motion and to retrain your knee to work properly. * It is just as important to make sure you are getting your knee perfectly straight as it is to regain your knee bend. * Taking a pain pill an hour before therapy can help you have a more productive and comfortable therapy session. Home Exercise: * You were shown a series of exercises (heel props, heel slides, etc.) in the hospital. Do these exercises three to four times each day including the exercises you were shown in physical therapy. Walking: * Get up and walk several times each day. For the first four weeks, try not to stand or walk for more than one hour at a time. If you do stand or walk for more than one hour, you will not hurt anything, but your knee and leg will likely swell. * As you feel comfortable, you may change from the walker or crutches to a cane and then to independent walking. MEDICATIONS: New Medicine: * You will likely be taking one or more of these medications: 1. Oxycodone - A quick and shorter-acting pain medication. Take one to two tablets every four to six hours to lessen your pain. 2. Iron Sulfate - Take two times each day for the month after surgery to help you replace the blood lost during surgery. 3 Aspirin - Thins your blood to lessen the chance of forming a blood clot. * The most common side effects of pain medicine and iron are nausea and constipation. If nausea or constipation is too much of a problem or if you have any questions about your new medicines or doses, call [facility] at . We will try to help you manage these issues. VERY IMPORTANT TO READ AND REVIEW" Pain: * The immediate post-operative period after knee replacement surgery is often quite painful. * You are given a prescription for pain medicine. You should take it, as directed, when you need it, especially before physical therapy and before going to bed. Pain that interferes with sleep is very common and can last several months. * You will likely need pain medicine for the first four to six weeks. It will not stop all of the pain. The pain will lessen and as you feel better, you may change to milder pain medicine such as Tylenol. * The most common side effects of pain medicine are nausea and constipation, so don't take more than you need. SPECIAL CARE INSTRUCTIONS: TEDs/Elastic Stockings: * The white elastic stockings help limit swelling and prevent blood clots from forming in your legs. The more you wear them, the more they work. * Wear them for six weeks after knee replacement surgery and four weeks after partial knee replacement. Prevention of Infection: * Take antibiotics one hour before any dental cleaning, dental work, urological procedure, gastrointestinal procedure or any invasive surgery in order to prevent your new joint from getting infected. * You may get the antibiotics from the doctor performing the procedure or you may call our office at before and we will call in a prescription to the pharmacy of your choice. Things to Watch For: * Drainage from the incision site that occurs more than one week after your surgery. * Severely increased knee/leg pain or swelling. * Increased redness at the incision site. * Fever above 102 degrees Fahrenheit. * Unusual chest pain or shortness of breath. * Unusual pain or burning with urination. [facility] at with any of the above problems or if you have any questions about your medicines or recovery. FOLLOW UP VISIT: Make an appointment to see your doctor for approximately two weeks after surgery for a progress check and staple removal by calling the office at . Current Hospital Diet Patient's current hospital diet: Regular Diet Discharge Diet Recommended Diet: Regular Diet Procedures Procedures Performed: Left Total Knee Arthroplasty Pending Studies Studies pending at discharge: no Laboratory Results Lipid Panel Test 02/02/17 06:21 Range/Units Triglycerides Level 130 0-150 mg/dl Cholesterol Level 144 0-200 mg/dl HDL Cholesterol 57 mg/dl Cholesterol/HDL Ratio 2.5 LDL Cholesterol, Calculated 61 mg/dl Medical Emergencies . Who to Call and When: Medical Emergencies: If at any time you feel your situation is an emergency, please call 911 immediately. . Non-Emergent Contact Non-Emergency issues call your: Surgeon . "Provider Documentation" section prepared by Jose Guadalupe Yu. . VTE Core Measure Inpt VTE Proph given/why not?: Other Anticoagulation, T.E.D. Stockings, SCD's
[2017-04-19] MEDS: VENLAFAXINE HCL XR 75 MG CAPXR PO SCH (21:00)
[2017-04-19] MEDS: POTASSIUM CHLORIDE 10 MEQ TABCR PO SCH (21:43)
[2017-04-19] MEDS: ZOLPIDEM TARTRATE 10 MG TAB PO SCH (21:43)
[2017-04-19] MEDS: SENNA 8.6 MG TAB PO SCH (21:44)
[2017-04-19] MEDS: SIMVASTATIN 20 MG TAB PO SCH (21:44)
[2017-04-19] MEDS: BISACODYL 5 MG TABEC PO SCH (21:45)
[2017-04-19] MEDS: NEBIVOLOL HCL 5 MG TAB PO SCH (21:46)
[2017-04-20] MEDS: CHECK SCOPOLAMINE PATCH PLACEMENT SCH ×2 (00:55→09:34)
[2017-04-20] MEDS: KETOROLAC TROMETHAMINE 15 MG/ML VIAL IV. SCH ×3 (01:05→12:00)
[2017-04-20 03:30] VITALS: BP 132/72; PULSE 88; TEMP 36.6; O2SAT 94
[2017-04-20] MEDS: LEVOTHYROXINE 125 MCG TAB PO SCH (05:45)
[2017-04-20] MEDS: ACETAMINOPHEN 500 MG TAB PO SCH (05:45)
[2017-04-20 07:04] VITALS: BP 120/71; PULSE 73; TEMP 36.7; O2SAT 90
--- NOTE | 2017-04-20 08:28 | PROGRESS NOTE ---
DATE: 04/20/2017 SUBJECTIVE: A 66-year-old white female postop day 2 from left knee replacement. She is doing well. She says this is going much easier than her previous knee replacement. She has been getting around, doing therapy pretty well. Pain is controlled. No chest pain or shortness of breath. Not feeling dizzy or lightheaded. OBJECTIVE: VITAL SIGNS: Temperature 36.7. Vital signs stable. PHYSICAL EXAMINATION: GENERAL: Reveals a healthy, pleasant middle-aged female. She is lying in bed, looks pretty comfortable. EXTREMITIES: Examination of the left leg reveals the incision to be clean, dry and intact. No significant drainage. Calf is soft and supple. She can dorsiflex and plantarflex her foot appropriately. She is neurologically intact. ASSESSMENT: A 66-year-old white female postop day 2 from left knee replacement, doing well. Pain is controlled. She is neurologically intact. PLAN: 1. DVT prophylaxis including thigh-high TEDs, SCDs, and aspirin twice a day. 2. PT/OT. Weight bear as tolerated. Left total knee protocol. 3. Pain control. Doing well with current pain regimen. 4. Disposition: Plan to discharge to home with some home health later today after therapy.
[2017-04-20] MEDS: MULTIVITAMIN TAB PO SCH (09:36)
[2017-04-20] MEDS: PANTOprazole SOD 40 MG TAB PO SCH (09:36)
[2017-04-20] MEDS: VENLAFAXINE HCL XR 150 MG CAPXR PO SCH (09:36)
[2017-04-20] MEDS: FERROUS GLUCONATE 324 MG TAB PO SCH ×2 (09:36→12:50)
[2017-04-20] MEDS: TAPENTADOL ER 50 MG TABCR PO SCH (09:39)
[2017-04-20] MEDS: ASPIRIN 81 MG ECTAB PO SCH (10:16)
[2017-04-20] MEDS: DOCUSATE SODIUM 100 MG CAP PO SCH (10:16)
[2017-04-20 10:47] VITALS: BP 120/71; PULSE 73; TEMP 36.7; O2SAT 90
[2017-04-20 11:41] VITALS: BP 112/68; PULSE 76; TEMP 36.7; O2SAT 93
[2017-04-20] MEDS: OXYCODONE HCL IR 5 MG TAB (IMMEDIATE RELEASE) PO PRN (12:50)
--- NOTE | 2017-05-01 07:58 | DISCHARGE SUMMARY ---
ADMITTING PHYSICIAN AND SURGEON: Jose Guadalupe Yu MD. ADMITTING DIAGNOSIS: Left knee degenerative joint disease. SURGERY PERFORMED: Left total knee arthroplasty. SECONDARY DIAGNOSES: Hypertension, elevated cholesterol, hypothyroidism, anxiety, depression, arthritis, hiatal hernia, obesity. CONSULTS: None obtained. HISTORY AND PHYSICAL EXAMINATION: Well documented in the patient's chart. HOSPITAL COURSE: The patient was admitted on 04/18/2017, underwent total knee arthroplasty, tolerated the procedure well. There were no complications. She was transferred to the PACU postoperatively and later to the orthopedic floor for further care. She was given Ancef for antibiotic prophylaxis, AMAURY stockings, SCDs and aspirin for DVT prophylaxis. Hemoglobin, hematocrit and vital signs were monitored during hospital stay and remained stable. She developed some postoperative anemia, did not require any blood transfusions. There were no complications. By postoperative day 2, she was tolerating a regular diet, pain was controlled with oral pain medicine. She was participating in physical therapy. On postop day 2, she was discharged home, set up with home health services. She was given printed discharge instructions including new prescriptions for extra strength Tylenol, aspirin, iron supplement and oxycodone. Continue her home medications with the exception of her home dose of aspirin which was changed. Continue physical therapy. She is weightbearing as tolerated, AMAURY stockings. Follow up 10-12 days or sooner if there are problems or concerns.
== END 2017-04-20 13:28 | disposition home health service (06) | DRG 470 ==
LOC: C.ACU 10:41 → C.3E 11:30 → ENRESERV 15:27
PROVIDERS: ADMIT Orthopaedic Surgery Sports Medicine; ATTEND Orthopaedic Surgery Sports Medicine
PROC: 0SRD0J9 Replacement of Left Knee Joint with Synthetic Substitute, Cemented, Open Approach (ICD-10-PCS; principal; 2017-04-18 13:15)
DX: M17.12 Unilateral primary osteoarthritis, left knee (principal); I10 Essential (primary) hypertension; E03.9 Hypothyroidism, unspecified; F41.8 Other specified anxiety disorders; K44.9 Diaphragmatic hernia without obstruction or gangrene; E66.9 Obesity, unspecified; Z68.37 Body mass index [BMI] 37.0-37.9, adult; Z96.651 Presence of right artificial knee joint